=== PATIENT | female | born 1930 | race Caucasian/White ===

== ENCOUNTER → 2017-04-07 10:07 | Outpatient (CLI) | payer MEDICARE, BC ==
[2015-11-03 10:19] VITALS: BMI 27.8
[~2017-04-07 10:07] MED LIST: ACETAMINOPHEN325 MG PO; ATROVENT 0.02%2.5 ML UPD; AYR SALINE50 ML NS; BAYER CHEWABLE81 MG PO; BENZONATATE200 MG PO; BUPROBAN150 MG PO; CELEBREX200 MG PO; CORDARONE200 MG PO; FAMVIR500 MG PO; FERREX 150 PLUS1 CAP PO; FEXOFENADINE HC60 MG PO; KLOR-CON 1010 MEQ PO; LASIX40 MG PO; LEXAPRO20 MG PO; LIDOCAINE HC10 MG/M3 INH; METOPROLOL TART50 MG PO; MUCINEX DM ER1 EAC1 PO; MYRBETRIQ50 MG PO; ONCOLOGY MOUTHWA5 ML PO; PACERONE100 MG PO; PRADAXA150 MG PO; PREDNISONE20 MG PO; RESTASIS EYE DR30 EA EACH EYE; ROCEPHIN 1 GM/D51 G1 IV; SOLU-MEDRO40 MG/1 M1 IV; TUSSIONEX PENN473 ML PO; VITAMIN D2000 UNIT PO; XOPENEX 0.0.63 MG/3 UPD; ZITHROMAX250 MG PO; ZYRTEC10 MG PO; [UNRECOGNIZED DRUG - OTHER]
== END | disposition home or self-care (01) ==
LOC: D.US 10:07
DX: I65.23 Occlusion and stenosis of bilateral carotid arteries (principal)

== ENCOUNTER → 2017-07-08 08:43 | Outpatient (CLI) | payer MEDICARE, BC ==
[2015-11-03 10:19] VITALS: BMI 27.8
[~2017-07-08 08:43] MED LIST changes: +COZAAR25 MG PO; +LIPITOR20 MG PO; +PROTONIX40 MG PO; +STERAPRED DS 1210 MG PO
== END | disposition home or self-care (01) ==
LOC: D.CT 08:43
DX: R91.8 Other nonspecific abnormal finding of lung field (principal)

== ENCOUNTER → 2017-07-28 18:52 | Outpatient (CLI) | payer MEDICARE, BC ==
[2015-11-03 10:19] VITALS: BMI 27.8
== END | disposition home or self-care (01) ==
LOC: D.LABREF 18:52
DX: J11.1 Influenza due to unidentified influenza virus with other respiratory manifestations (principal)

== ENCOUNTER → 2017-08-21 14:52 | Outpatient (CLI) | payer MEDICARE, BC ==
[2015-11-03 10:19] VITALS: BMI 27.8
[2017-08-23 17:08] LABS: ACID FAST SMEAR Negative (()); AFB SPECIMEN PROCESSING Concentration (())
== END | disposition home or self-care (01) ==
LOC: D.LABREF 14:52
PROVIDERS: Student in an Organized Health Care Education/Training Program
DX: A31.0 Pulmonary mycobacterial infection (principal)

== ENCOUNTER → 2017-08-25 16:08 | Outpatient (CLI) | payer MEDICARE, BC ==
[2015-11-03 10:19] VITALS: BMI 27.8
[2017-08-27 16:14] LABS: ACID FAST SMEAR Negative (()); AFB SPECIMEN PROCESSING Concentration (())
== END | disposition home or self-care (01) ==
LOC: D.LABREF 16:08
PROVIDERS: Student in an Organized Health Care Education/Training Program
DX: A31.0 Pulmonary mycobacterial infection (principal)

== ENCOUNTER 2017-09-19 10:12 | Inpatient (IN) | payer MEDICARE, BC ==
[~2017-09-19] VITALS: Ht 162.6 cm; Wt 60.9 kg
--- NOTE | ~2017-09-19 | HP ---
PATIENT: LAZARO MCKENZIE MEDICAL RECORD: [id number] ACCOUNT: [id number] LOCATION:D.MS Herrera2205 : 30 ADMISSION DATE: 09/19/17 HISTORY AND PHYSICAL EXAMINATION HISTORY OF PRESENT ILLNESS: She is an 87-year-old female with a history of atypical pneumonia and COPD followed by myself and Dr. Clayton as an outpatient. She has had a cough that has been ongoing now for several months; however, in the last few days, she has been progressively getting a little more short of breath. She has also developed a fever last night. She just finished coming off an outpatient round of cefdinir about a week ago. On examination in the office today, she was found to have a left lower lobe infiltrate on exam with some leukocytosis and low-grade temperature and she was admitted for further evaluation and treatment. PAST MEDICAL HISTORY: Significant for congestive heart failure, coronary artery disease with stents and bypass surgery in the past. She has a history of chronic atrial fibrillation, hypertension, neuropathy, osteoarthritis, vitamin D deficiency. ALLERGIES: To ZHENG INHIBITORS, which caused a cough; CRESTOR, which caused myalgia; and SULFA. HOME MEDICATIONS: Include amiodarone 200 mg b.i.d., aspirin 81 mg daily, Lipitor 40 mg daily, bupropion SR 150 mg q.a.m., Celebrex p.r.n., Lexapro 20 mg daily, Lasix 40 mg daily, hydrocodone p.r.n., DuoNeb updrafts q.i.d., potassium 10 mEq daily, losartan 25 mg daily, pantoprazole 40 mg daily, Pradaxa 150 mg twice daily, Restasis eyedrops, vitamin D capsules. FAMILY HISTORY: Significant for diabetes and coronary artery disease. SOCIAL HISTORY: She is a former smoker, but quit over 10 years ago. No alcohol or drug use. REVIEW OF SYSTEMS: CONSTITUTIONALLY: She does complain of some fatigue. HEENT: Denies any sore throat or dysphagia, no ear pain. CARDIOPULMONARY: She denies chest pain, but does complain of cough with some productive greenish yellow sputum. She has been more short of breath. GASTROINTESTINAL: She has had some minimal nausea at times. Denies any abdominal pain. No diarrhea. GENITOURINARY: Denies any hematuria or dysuria. MUSCULOSKELETAL: She does have some chronic low back and hip pain. NEUROLOGIC: She denies any headache, numbness or tingling, facial droop. PHYSICAL EXAMINATION: VITAL SIGNS: Her blood pressure 138/70, pulse 91, respirations 16, temperature 98.6. HEENT: PERRLA, EOMI. Pharynx was clear. NECK: Supple, no JVD. HEART: Had an irregularly irregular rate and rhythm. LUNGS: Had some rhonchi with some diffuse wheezing anteriorly. ABDOMEN: Soft, nontender, nondistended. EXTREMITIES: Had no clubbing or edema. NEUROLOGICAL: Grossly intact. HISTORY AND PHYSICAL [id number] LAZARO MCKENZIE LABORATORY DATA: White count was 12.7 with a left shift. X-ray showed left a lower lobe infiltrate with some chronic scarring in the right upper lobe. ASSESSMENT AND PLAN: Pneumonia. Flu swabs here in the office for A and B were both negative. We are going to start her on Merrem and vancomycin with infectious disease and pulmonary consultations. Continue with home medications. We will get a CT of the chest for further delineation. TRANSINT:[id number] Voice Confirmation ID: [id number] DOCUMENT ID: [id number] JHONATAN CELAYA DO at 1011 CC: [id number] DICTATION DATE: 09/19/17 1044 FACILITIES MAINTENANCE MANAGER: 09/19/17 1100 ADM IN [place] [id number] [place] [address]
[~2017-09-19 10:12] MED LIST changes: -COZAAR25 MG PO; -LIPITOR20 MG PO; -PROTONIX40 MG PO; -STERAPRED DS 1210 MG PO
[2017-09-19 11:36] LABS: BASOPHILS 0.1 % (0-2); EOSINOPHILS 0.3 % (0-7); HEMATOCRIT 41.7 % (36.0-48.0); HEMOGLOBIN 13.6 g/dL (12-16); IMMATURE GRANULOCYTES 0.2 % (0-5); LYMPHOCYTES 5.7 % (15-50); MCH 33.3 pg (26.0-34.0); MCHC 32.6 g/dL (31.0-37.0); MEAN PLATELET VOLUME 10.1 fL (7.4-10.4); MONOCYTES 7.8 % (2-11); NEUTROPHILS 85.9 % (40-80); RBC 4.09 10x6/uL (4.00-5.40); RDW 14.6 % (11.5-14.5); WBC 12.4 10x3/uL (4.8-10.8)
[2017-09-19 11:37] LABS: PLATELET COUNT 352 10x3/uL (130-400)
[2017-09-19 11:50] LABS: ALBUMIN 2.8 g/dL (3.4-5.0); ALKALINE PHOSPHATASE 78 U/L (46-116); ALT (SGPT) 17 U/L (10-68); BILIRUBIN - TOTAL 0.65 mg/dL (0.2-1.3); CALC OSMOLALITY 280 mosm/kg (275-300); CALCIUM 8.4 mg/dL (8.5-10.1); CARBON DIOXIDE 28.4 mmol/L (21.0-32.0); CHLORIDE - SERUM 104 mmol/L (98-107); CREATININE - SERUM 0.7 mg/dL (0.6-1.3); GLUCOSE 85 mg/dL (74-106); PROTEIN - SERUM 6.9 g/dL (6.4-8.2); SODIUM 141 mmol/L (136-145); UREA NITROGEN 14 mg/dL (7-18); eGFR NON AFRICAN AMERICAN 84 mL/min (90-120)
[2017-09-19 12:02] VITALS: BP 120/69
[2017-09-19 18:51] VITALS: BP 120/69; Ht 162.6 cm; Wt 60.9 kg
[2017-09-19 20:00] VITALS: BP 180/85
[2017-09-20] VITALS (7 sets, daily range): BP systolic 106–141; BP diastolic 49–72
[2017-09-20 03:55] LABS: BASOPHILS 0.1 % (0-2); EOSINOPHILS 0 % (0-7); HEMATOCRIT 40.3 % (36.0-48.0); IMMATURE GRANULOCYTES 0.2 % (0-5); LYMPHOCYTES 3.5 % (15-50); MCH 32.9 pg (26.0-34.0); MCHC 32.3 g/dL (31.0-37.0); MEAN PLATELET VOLUME 9.9 fL (7.4-10.4); NEUTROPHILS 93.2 % (40-80); PLATELET COUNT 327 10x3/uL (130-400); RBC 3.95 10x6/uL (4.00-5.40); RDW 14.5 % (11.5-14.5)
[2017-09-20 04:11] LABS: ALBUMIN 2.6 g/dL (3.4-5.0); ALKALINE PHOSPHATASE 73 U/L (46-116); ALT (SGPT) 18 U/L (10-68); BILIRUBIN - TOTAL 0.45 mg/dL (0.2-1.3); CALC OSMOLALITY 286 mosm/kg (275-300); CALCIUM 8.6 mg/dL (8.5-10.1); CARBON DIOXIDE 28.7 mmol/L (21.0-32.0); CHLORIDE - SERUM 106 mmol/L (98-107); CREATININE - SERUM 0.6 mg/dL (0.6-1.3); MAGNESIUM - SERUM 2.3 mg/dL (1.8-2.4); PHOSPHOROUS 3.4 mg/dL (2.5-4.9); POTASSIUM - SERUM 4.1 mmol/L (3.5-5.1); PROTEIN - SERUM 6.7 g/dL (6.4-8.2); SODIUM 141 mmol/L (136-145); UREA NITROGEN 17 mg/dL (7-18); eGFR NON AFRICAN AMERICAN > 90 mL/min (90-120)
[2017-09-20 04:16] LABS: GLUCOSE 164 mg/dL (74-106)
[2017-09-21 04:00] VITALS: BP 120/69
[2017-09-21 09:14] VITALS: BP 147/85
[2017-09-21 13:42] LABS: BASOPHILS 0 % (0-2); EOSINOPHILS 0 % (0-7); HEMOGLOBIN 13.2 g/dL (12-16); IMMATURE GRANULOCYTES 0.3 % (0-5); LYMPHOCYTES 2.7 % (15-50); MCH 32.8 pg (26.0-34.0); MCHC 32.2 g/dL (31.0-37.0); MCV 101.7 fL (80.0-100.0); MEAN PLATELET VOLUME 9.8 fL (7.4-10.4); RBC 4.03 10x6/uL (4.00-5.40); RDW 14.6 % (11.5-14.5)
[2017-09-21 13:49] LABS: PLATELET COUNT 393 10x3/uL (130-400); WBC 13.4 10x3/uL (4.8-10.8)
[2017-09-21 13:54] VITALS: BP 135/66
[2017-09-21 14:03] LABS: ALBUMIN 2.9 g/dL (3.4-5.0); ALKALINE PHOSPHATASE 73 U/L (46-116); ALT (SGPT) 30 U/L (10-68); BILIRUBIN - TOTAL 0.36 mg/dL (0.2-1.3); CALC OSMOLALITY 287 mosm/kg (275-300); CALCIUM 8.7 mg/dL (8.5-10.1); CARBON DIOXIDE 28.6 mmol/L (21.0-32.0); CHLORIDE - SERUM 104 mmol/L (98-107); CREATININE - SERUM 0.7 mg/dL (0.6-1.3); GLUCOSE 131 mg/dL (74-106); POTASSIUM - SERUM 3.7 mmol/L (3.5-5.1); PROTEIN - SERUM 6.5 g/dL (6.4-8.2); SODIUM 143 mmol/L (136-145); UREA NITROGEN 16 mg/dL (7-18); eGFR NON AFRICAN AMERICAN 84 mL/min (90-120)
[2017-09-21 14:09] LABS: IMMUNOGLOBULIN A 265 mg/dL (64-422); IMMUNOGLOBULIN G 965 mg/dL (700-1600)
[2017-09-21 16:25] VITALS: BP 124/56
[2017-09-21 20:00] VITALS: BP 128/62
[2017-09-22 03:48] LABS: BASOPHILS 0 % (0-2); EOSINOPHILS 0 % (0-7); HEMATOCRIT 38.2 % (36.0-48.0); HEMOGLOBIN 12.5 g/dL (12-16); IMMATURE GRANULOCYTES 0.2 % (0-5); LYMPHOCYTES 3.7 % (15-50); MCH 33.2 pg (26.0-34.0); MCHC 32.7 g/dL (31.0-37.0); MCV 101.3 fL (80.0-100.0); MEAN PLATELET VOLUME 9.6 fL (7.4-10.4); MONOCYTES 4.6 % (2-11); NEUTROPHILS 91.5 % (40-80); PLATELET COUNT 371 10x3/uL (130-400); RBC 3.77 10x6/uL (4.00-5.40); RDW 14.6 % (11.5-14.5); WBC 14.6 10x3/uL (4.8-10.8)
[2017-09-22 04:00] VITALS: BP 147/69
[2017-09-22 04:07] LABS: ALBUMIN 2.6 g/dL (3.4-5.0); ALKALINE PHOSPHATASE 68 U/L (46-116); ALT (SGPT) 31 U/L (10-68); CALC OSMOLALITY 290 mosm/kg (275-300); CALCIUM 8.4 mg/dL (8.5-10.1); CARBON DIOXIDE 30.4 mmol/L (21.0-32.0); CHLORIDE - SERUM 105 mmol/L (98-107); CREATININE - SERUM 0.7 mg/dL (0.6-1.3); GLUCOSE 146 mg/dL (74-106); POTASSIUM - SERUM 3.7 mmol/L (3.5-5.1); PROTEIN - SERUM 6.4 g/dL (6.4-8.2); SODIUM 144 mmol/L (136-145); UREA NITROGEN 16 mg/dL (7-18); eGFR NON AFRICAN AMERICAN 84 mL/min (90-120)
[2017-09-22 08:00] VITALS: BP 156/67
[2017-09-22 11:56] VITALS: BP 125/65
[2017-09-22 15:40] VITALS: BP 106/63
[2017-09-23] VITALS: BP 154/70
[2017-09-23 04:00] VITALS: BP 149/77
[2017-09-23 05:00] LABS: BASOPHILS 0.1 % (0-2); EOSINOPHILS 0.2 % (0-7); HEMATOCRIT 42.1 % (36.0-48.0); HEMOGLOBIN 13.5 g/dL (12-16); IMMATURE GRANULOCYTES 0.3 % (0-5); LYMPHOCYTES 9.3 % (15-50); MCH 32.8 pg (26.0-34.0); MCHC 32.1 g/dL (31.0-37.0); MCV 102.2 fL (80.0-100.0); MONOCYTES 9.5 % (2-11); NEUTROPHILS 80.6 % (40-80); PLATELET COUNT 393 10x3/uL (130-400); RBC 4.12 10x6/uL (4.00-5.40); RDW 14.7 % (11.5-14.5); WBC 14.5 10x3/uL (4.8-10.8)
[2017-09-23 05:28] LABS: ALBUMIN 2.7 g/dL (3.4-5.0); ALKALINE PHOSPHATASE 72 U/L (46-116); CALCIUM 8.3 mg/dL (8.5-10.1); CARBON DIOXIDE 34.4 mmol/L (21.0-32.0); CHLORIDE - SERUM 103 mmol/L (98-107); CREATININE - SERUM 0.7 mg/dL (0.6-1.3); POTASSIUM - SERUM 3.5 mmol/L (3.5-5.1); PROTEIN - SERUM 6.6 g/dL (6.4-8.2); SODIUM 144 mmol/L (136-145); eGFR NON AFRICAN AMERICAN 84 mL/min (90-120)
[2017-09-23 05:43] LABS: ALT (SGPT) 45 U/L (10-68); CALC OSMOLALITY 289 mosm/kg (275-300); GLUCOSE 98 mg/dL (74-106); UREA NITROGEN 21 mg/dL (7-18)
[2017-09-23 09:42] VITALS: BP 149/81
[2017-09-23 13:19] VITALS: BP 128/66
[2017-09-23 17:02] VITALS: BP 107/51
[2017-09-24] VITALS: BP 164/87
[2017-09-24 04:00] VITALS: BP 134/77
[2017-09-24 04:36] LABS: BASOPHILS 0.1 % (0-2); EOSINOPHILS 0.3 % (0-7); HEMATOCRIT 40.3 % (36.0-48.0); IMMATURE GRANULOCYTES 0.4 % (0-5); LYMPHOCYTES 8.5 % (15-50); MCH 32.8 pg (26.0-34.0); MCHC 32.3 g/dL (31.0-37.0); MCV 101.8 fL (80.0-100.0); NEUTROPHILS 82.7 % (40-80); PLATELET COUNT 367 10x3/uL (130-400); RBC 3.96 10x6/uL (4.00-5.40); RDW 14.6 % (11.5-14.5); WBC 13.6 10x3/uL (4.8-10.8)
[2017-09-24 04:50] LABS: CALC OSMOLALITY 286 mosm/kg (275-300); CALCIUM 8.4 mg/dL (8.5-10.1); CARBON DIOXIDE 32.2 mmol/L (21.0-32.0); CHLORIDE - SERUM 105 mmol/L (98-107); CREATININE - SERUM 0.6 mg/dL (0.6-1.3); GLUCOSE 105 mg/dL (74-106); POTASSIUM - SERUM 3.5 mmol/L (3.5-5.1); SODIUM 143 mmol/L (136-145); UREA NITROGEN 19 mg/dL (7-18); eGFR NON AFRICAN AMERICAN > 90 mL/min (90-120)
[2017-09-24 08:38] VITALS: BP 115/61
[2017-09-24 12:28] VITALS: BP 108/59
[2017-09-24 16:20] VITALS: BP 116/60
[2017-09-25] VITALS: BP 160/79
[2017-09-25 04:37] LABS: BASOPHILS 0.1 % (0-2); EOSINOPHILS 0.3 % (0-7); HEMATOCRIT 40.2 % (36.0-48.0); HEMOGLOBIN 12.8 g/dL (12-16); IMMATURE GRANULOCYTES 0.3 % (0-5); LYMPHOCYTES 7.9 % (15-50); MCH 32.7 pg (26.0-34.0); MCHC 31.8 g/dL (31.0-37.0); MCV 102.6 fL (80.0-100.0); MEAN PLATELET VOLUME 9.8 fL (7.4-10.4); MONOCYTES 7.1 % (2-11); NEUTROPHILS 84.3 % (40-80); PLATELET COUNT 390 10x3/uL (130-400); RBC 3.92 10x6/uL (4.00-5.40); RDW 14.8 % (11.5-14.5); WBC 12.5 10x3/uL (4.8-10.8)
[2017-09-25 04:53] LABS: CALC OSMOLALITY 285 mosm/kg (275-300); CALCIUM 8.5 mg/dL (8.5-10.1); CHLORIDE - SERUM 105 mmol/L (98-107); CREATININE - SERUM 0.7 mg/dL (0.6-1.3); GLUCOSE 105 mg/dL (74-106); SODIUM 142 mmol/L (136-145); UREA NITROGEN 22 mg/dL (7-18); eGFR NON AFRICAN AMERICAN 84 mL/min (90-120)
[2017-09-25 04:59] LABS: POTASSIUM - SERUM 4.2 mmol/L (3.5-5.1)
[2017-09-25 06:00] VITALS: BP 137/73
[2017-09-25] MEDS ORDERED: CORDARONE200 MG PO (06:50)
[2017-09-25] MEDS ORDERED: COZAAR25 MG PO (06:50)
[2017-09-25] MEDS ORDERED: LIPITOR20 MG PO (06:50)
[2017-09-25] MEDS ORDERED: PROTONIX40 MG PO (06:51)
[2017-09-25] MEDS ORDERED: PRADAXA150 MG PO (06:51)
[2017-09-25] MEDS ORDERED: STERAPRED DS 1210 MG PO (06:52)
[2017-09-25 08:42] VITALS: BP 141/70
[2017-09-25 11:49] VITALS: BP 100/57
[2017-09-25 21:08] LABS: IMMUNOGLOBULIN E 3 IU/mL (0-100)
== END 2017-09-25 15:03 | disposition home health service (06) | DRG 178 ==
LOC: D.MS 10:12
PROVIDERS: Family Medicine; Internal Medicine Pulmonary Disease
DX: J15.1 Pneumonia due to Pseudomonas (principal); J44.0 Chronic obstructive pulmonary disease with (acute) lower respiratory infection; J44.1 Chronic obstructive pulmonary disease with (acute) exacerbation; S22.42XA Multiple fractures of ribs, left side, initial encounter for closed fracture; J90 Pleural effusion, not elsewhere classified; J98.11 Atelectasis; J30.9 Allergic rhinitis, unspecified; X58.XXXA Exposure to other specified factors, initial encounter; I10 Essential (primary) hypertension; I48.2 Chronic atrial fibrillation; Z79.01 Long term (current) use of anticoagulants; G62.9 Polyneuropathy, unspecified; Z95.1 Presence of aortocoronary bypass graft; M19.90 Unspecified osteoarthritis, unspecified site; E55.9 Vitamin D deficiency, unspecified; I25.10 Atherosclerotic heart disease of native coronary artery without angina pectoris; R91.8 Other nonspecific abnormal finding of lung field; K59.00 Constipation, unspecified; D64.9 Anemia, unspecified; R53.1 Weakness

== ENCOUNTER → 2018-04-27 09:37 | Outpatient (CLI) | payer MEDICARE, BC ==
[2017-09-19 18:51] VITALS: BMI 23.0
[~2018-04-27 09:37] MED LIST changes: +COZAAR25 MG PO; +LIPITOR20 MG PO; +PROTONIX40 MG PO; +STERAPRED DS 1210 MG PO
== END | disposition home or self-care (01) ==
LOC: D.RT 09:37
DX: Z87.01 Personal history of pneumonia (recurrent) (principal); J45.909 Unspecified asthma, uncomplicated

== ENCOUNTER 2018-08-30 13:50 | Emergency (ER) | payer MEDICARE, BC ==
[~2018-08-30] VITALS: Ht 162.6 cm; Wt 63.6 kg
[2018-08-30 14:08] VITALS: Ht 162.6 cm; Wt 63.6 kg
[2018-08-30] MEDS ORDERED: CARDIZEM CD180 MG PO (14:13)
[2018-08-30] MEDS ORDERED: LANOXIN125 MCG PO (14:14)
[2018-08-30] MEDS ORDERED: SINGULAIR10 MG PO (14:15)
[2018-08-30 14:53] LABS: BASOPHILS 0.5 % (0-2); EOSINOPHILS 2.4 % (0-7); HEMATOCRIT 42.7 % (36.0-48.0); IMMATURE GRANULOCYTES 0.2 % (0-5); LYMPHOCYTES 11.2 % (15-50); MCH 32.9 pg (26.0-34.0); MCHC 32.8 g/dL (31.0-37.0); MCV 100.5 fL (80.0-100.0); MEAN PLATELET VOLUME 9.6 fL (7.4-10.4); MONOCYTES 8.1 % (2-11); NEUTROPHILS 77.6 % (40-80); RBC 4.25 10x6/uL (4.00-5.40); RDW 14.2 % (11.5-14.5); WBC 9.9 10x3/uL (4.8-10.8)
[2018-08-30 14:54] LABS: PLATELET COUNT 236 10x3/uL (130-400)
[2018-08-30 15:09] LABS: ALBUMIN 3.2 g/dL (3.4-5.0); ANION GAP 10.4 mmol/L (8-16); BILIRUBIN - TOTAL 0.46 mg/dL (0.2-1.3); CALCIUM 8.6 mg/dL (8.5-10.1); CARBON DIOXIDE 28.9 mmol/L (21.0-32.0); CREATININE - SERUM 0.9 mg/dL (0.6-1.3); POTASSIUM - SERUM 4.3 mmol/L (3.5-5.1)
[2018-08-30] MEDS ORDERED: MUCINEX600 MG PO (16:03)
[2018-08-30] MEDS ORDERED: OMNICEF300 MG PO (16:03)
[2018-08-30 16:30] VITALS: BP 138/66
== END 2018-08-30 16:30 | disposition other institution (70) ==
LOC: D.ER 13:50
PROVIDERS: Emergency Medicine
DX: J44.9 Chronic obstructive pulmonary disease, unspecified (principal); R06.02 Shortness of breath

== ENCOUNTER → 2018-09-01 09:24 | Outpatient (CLI) | payer MEDICARE, BC ==
[2018-08-30 14:08] VITALS: BMI 24.0
[~2018-09-01 09:24] MED LIST changes: +CARDIZEM CD180 MG PO; +LANOXIN125 MCG PO; +MUCINEX600 MG PO; +OMNICEF300 MG PO; +SINGULAIR10 MG PO
== END | disposition home or self-care (01) ==
LOC: D.US 09:24
DX: I65.23 Occlusion and stenosis of bilateral carotid arteries (principal)

== ENCOUNTER → 2019-05-17 10:41 | Outpatient (CLI) | payer MEDICARE, BC ==
[2018-08-30 14:08] VITALS: BMI 24.0
== END | disposition home or self-care (01) ==
LOC: D.RAD 10:41
PROVIDERS: ATTEND Internal Medicine Pulmonary Disease
DX: J44.9 Chronic obstructive pulmonary disease, unspecified (principal); Z87.01 Personal history of pneumonia (recurrent)

== ENCOUNTER 2019-08-13 10:03 | Inpatient (IN) | payer MEDICARE, BC ==
[~2019-08-13] VITALS: Ht 162.6 cm; Wt 63.2 kg
[2019-08-13 10:51] LABS: BASOPHILS 0.1 % (0-2); EOSINOPHILS 0.1 % (0-7); HEMATOCRIT 42.2 % (36.0-48.0); HEMOGLOBIN 14.3 g/dL (12-16); IMMATURE GRANULOCYTES 0.3 % (0-5); LYMPHOCYTES 1.9 % (15-50); MCH 31.7 pg (26.0-34.0); MCHC 33.9 g/dL (31.0-37.0); MCV 93.6 fL (80.0-100.0); MEAN PLATELET VOLUME 9.3 fL (7.4-10.4); MONOCYTES 5.8 % (2-11); NEUTROPHILS 91.8 % (40-80); PLATELET COUNT 258 10x3/uL (130-400); RBC 4.51 10x6/uL (4.00-5.40); RDW 16.8 % (11.5-14.5)
[2019-08-13 10:59] LABS: CALC OSMOLALITY 285 mosm/kg (275-300); CARBON DIOXIDE 30.7 mmol/L (21.0-32.0); CHLORIDE - SERUM 103 mmol/L (98-107); CREATININE - SERUM 0.7 mg/dL (0.6-1.3); GLUCOSE 166 mg/dL (74-106); POTASSIUM - SERUM 3.9 mmol/L (3.5-5.1); SODIUM 140 mmol/L (136-145); UREA NITROGEN 21 mg/dL (7-18); eGFR NON AFRICAN AMERICAN 83 mL/min (90-120)
[2019-08-13 11:01] LABS: APTT 41.4 SECONDS (22.8-39.4); INR 1.37 (0.85-1.17); PROTIME 16.3 SECONDS (11.6-15.0)
[2019-08-13 11:17] LABS: ALBUMIN 3.1 g/dL (3.4-5.0); ALKALINE PHOSPHATASE 60 U/L (46-116); ALT (SGPT) 32 U/L (10-68); CKMB 3.4 U/L (0.0-3.6); CREATINE KINASE 80 UL (21-215); PRO BNP 1489 pg/mL (0-450); PROTEIN - SERUM 6.2 g/dL (6.4-8.2); TROPONIN-I 0.028 ng/mL (0.000-0.060)
[2019-08-13 12:39] VITALS: BP 134/69
--- NOTE | 2019-08-13 15:30 | NUR ---
NEW PATIENT ADMIT FROM ER VIA WC ACCOMPANIED BY ER STAFF. PATIENT IS WAKE, ALERT AND ORIENTED X 4. PATIENT TRANSFERRED TO BED WITHOUT DIFFICULTY. PATIENT IS COUGHING EXCESSIVELY. ABG'S WNL. O2SAT 89%. INCREASED 02 FROM 2 L TO 4L. PATIENT HISTORY AND ASSESMENT COMPLETED. RESP THERAPY IN ROOM FOR BREATHING TREATMENT. WILL CONTINUE TO MONITOR. SR UP X 2 BED IN LOW POSITION AND CALL LIGHT IN REACH.
[2019-08-13 16:17] VITALS: BP 125/80
[2019-08-13 16:21] VITALS: BP 125/67; BMI 22.8
--- NOTE | 2019-08-13 18:00 | NUR ---
PATIENT STATES THAT SHE USES BIPAPN AT NIGHT. PATIENT DID NOT BRING MACHINE WITH HER AND SHE DOES NOT KNOW SETTINGS. CALLED DR MAYEN . HE DID NOT WANT ORDER BIPAP WITHOUT KNOWING SETTINGS. HE WOULD BE FINE IF SOMEONE JUDSON BRING HER MACHINE HERE WITH SETTINGS IN PLACE. SPOKE WITH PATIENTS PUJA OCAMPO SHE WILL BRING MACHINE UP HERE. WILL CONTINUE TO MONITOR. SR UPX 2 BED IN LOW POSITION AND CALL LIGHT INR EACH.
--- NOTE | 2019-08-13 18:19 | NUR ---
PATIENT RESTING QUIETLY. WILL CONTINUE TO MONITOR. SR UP X 2 BED IN LOW POSITION AND CALL LIGHT IN REACH.
[2019-08-13 20:00] VITALS: BP 127/69
--- NOTE | 2019-08-13 20:30 | NUR ---
PT STATES SHE TAKES CARDIZEM 180MG BID BUT IT IS LISTED IN HER HOME MEDS 180MG DAILY. CALLED DORENE HERNANDEZ TO INFORM. NO NEW ORDERS GIVEN. THE ROUNDING MD OR DORENE TO ADDRESS IN THE AM. WILL REPORT THIS TO ONCOMING NURSE WELL IN REPORT. PT DENIES PAIN OR FURTHER NEEDS. HER BED IS LOW AND CALL LIGHT IN REACH.
[2019-08-13 23:58] LABS: APPEARANCE CLEAR (CLEAR); BILIRUBIN NEGATIVE (NEGATIVE); COLOR YELLOW (YELLOW); GLUCOSE 500 mg/dL (NEGATIVE); KETONE SMALL mg/dL (NEGATIVE); NITRITE NEGATIVE (NEGATIVE); PROTEIN NEGATIVE (NEGATIVE); UROBILINOGEN NORMAL (NORMAL)
[2019-08-14] VITALS: BP 110/85
[2019-08-14 04:00] VITALS: BP 149/89
--- NOTE | 2019-08-14 07:00 | NUR ---
RECEIVED REPORT. ASSUMED CARE OF PATIENT. COFFEE PROVIDED TO PATIENT DURING BEDSIDE SHIFT REPORT. NONPRODUCTIVE WET COUGH NOTED. CALL LIGHT WITHIN REACH. NO DISTRESS.
[2019-08-14 08:26] VITALS: BP 127/73
--- NOTE | 2019-08-14 10:00 | NUR ---
PATIENT RESTING IN BED WITH EYES OPEN. DR. MAYEN AT BEDSIDE. CALL LIGHT WITHINR EACH. NO DISTRESS.
[2019-08-14 10:36] LABS: HEMATOCRIT 42.4 % (36.0-48.0); MCH 31.1 pg (26.0-34.0); MCV 94.2 fL (80.0-100.0); MEAN PLATELET VOLUME 9.4 fL (7.4-10.4); PLATELET COUNT 300 10x3/uL (130-400); RDW 17.2 % (11.5-14.5); WBC 19.1 10x3/uL (4.8-10.8)
[2019-08-14 10:46] LABS: CALC OSMOLALITY 286 mosm/kg (275-300); CARBON DIOXIDE 29.7 mmol/L (21.0-32.0); CHLORIDE - SERUM 102 mmol/L (98-107); CREATININE - SERUM 0.7 mg/dL (0.6-1.3); GLUCOSE 181 mg/dL (74-106); POTASSIUM - SERUM 4.1 mmol/L (3.5-5.1); SODIUM 141 mmol/L (136-145); eGFR NON AFRICAN AMERICAN 83 mL/min (90-120)
[2019-08-14 10:47] LABS: UREA NITROGEN 15 mg/dL (7-18)
[2019-08-14 11:04] LABS: LYMPHOCYTES 5 % (15-50); MONOCYTES 10 % (2-11); NEUTROPHILS 83 % (40-80); PLATELET ESTIMATE NORMAL
[2019-08-14 12:03] VITALS: BP 158/89
--- NOTE | 2019-08-14 13:00 | NUR ---
NEW ORDER FOR ROBITUSIN COUGH SYRUP OBTAINED. NO DISTRESS.
[2019-08-14 14:30] VITALS: Ht 162.6 cm; Wt 63.2 kg
--- NOTE | 2019-08-14 17:23 | NUR ---
RESTING IN BED, NO DISTRESS. CALL LIGHT WITHIN REACH.
--- NOTE | 2019-08-14 19:28 | NUR ---
RECEIVED UP IN BED WITH EYES OPEN AND TV ON. ALERT AND ORIETNED X4. UP AD ROMMEL TO B/R. IV TO LEFR TFA INFILTRATED. IV FLUIDS STOPPED. WARM WASH CLOTH PLACED ON AREA. DENIES ANY NEEDS AT THIS TIME.
[2019-08-14 20:00] VITALS: BP 109/64
[2019-08-15] VITALS: BP 128/68
[2019-08-15 04:00] VITALS: BP 140/78
[2019-08-15 05:03] LABS: BASOPHILS 0.1 % (0-2); EOSINOPHILS 0 % (0-7); HEMATOCRIT 40.1 % (36.0-48.0); IMMATURE GRANULOCYTES 0.4 % (0-5); LYMPHOCYTES 2.2 % (15-50); MCH 30.7 pg (26.0-34.0); MCHC 32.4 g/dL (31.0-37.0); MCV 94.8 fL (80.0-100.0); MEAN PLATELET VOLUME 9.4 fL (7.4-10.4); MONOCYTES 2.9 % (2-11); NEUTROPHILS 94.4 % (40-80); PLATELET COUNT 244 10x3/uL (130-400); RBC 4.23 10x6/uL (4.00-5.40); RDW 17.2 % (11.5-14.5); WBC 19.2 10x3/uL (4.8-10.8)
[2019-08-15 05:22] LABS: CALC OSMOLALITY 288 mosm/kg (275-300); CALCIUM 8.6 mg/dL (8.5-10.1); CARBON DIOXIDE 29.2 mmol/L (21.0-32.0); CHLORIDE - SERUM 106 mmol/L (98-107); CREATININE - SERUM 0.6 mg/dL (0.6-1.3); GLUCOSE 202 mg/dL (74-106); POTASSIUM - SERUM 4.1 mmol/L (3.5-5.1); SODIUM 141 mmol/L (136-145); UREA NITROGEN 18 mg/dL (7-18); eGFR NON AFRICAN AMERICAN > 90 mL/min (90-120)
[2019-08-15 08:19] VITALS: BP 109/78
[2019-08-15 11:48] VITALS: BP 120/76
--- NOTE | 2019-08-15 14:37 | NUR ---
I have reviewed this patient and I concur with the Shift Assessment completed by the Licensed Practical Nurse today this shift.
[2019-08-15 16:44] VITALS: BP 124/67
--- NOTE | 2019-08-15 18:47 | NUR ---
RECIEVED A/A/OX4. DENIES ANY PAIN OR DISCOMFORT. STATES SHE IS ANGRY THAT RT DID NOT PUT HER CPAP ON HER LAST NIGHT BUT NO OTHER COMPLAINTS. IV PATENT TO RIGHT FOREARM WITHOUT REDNESS OR EDEMA. ASSESSMENT COMPLETED AND WILL CONTINIE POC. CALL LIGHT IN REACH AND BED IN LOW POSITION.
[2019-08-15 20:00] VITALS: BP 109/63
--- NOTE | 2019-08-15 20:00 | NUR ---
RECEIVED UP IN BED WITH EYES OPEN AND TV ON. ALERT AND ORIETNED X4. UP AD ROMMEL. RECEIVING UPDRAFT AT TRHIS TIME. O2 AT 4 LITERS PER N/C. IV TO RIGHT FAA WITH NS AT 75CC/HR. DSG CDEI WITH NO REDNESS OR SWELLING OBSERVED. DENIES ANY NEEDS AT THIS TIME.
[2019-08-16] VITALS: BP 128/77
[2019-08-16 05:36] LABS: BASOPHILS 0 % (0-2); EOSINOPHILS 0 % (0-7); HEMATOCRIT 40.8 % (36.0-48.0); HEMOGLOBIN 13.1 g/dL (12-16); IMMATURE GRANULOCYTES 0.5 % (0-5); LYMPHOCYTES 2.4 % (15-50); MCH 30.9 pg (26.0-34.0); MCHC 32.1 g/dL (31.0-37.0); MCV 96.2 fL (80.0-100.0); MEAN PLATELET VOLUME 9.3 fL (7.4-10.4); MONOCYTES 3.4 % (2-11); NEUTROPHILS 93.7 % (40-80); RBC 4.24 10x6/uL (4.00-5.40); RDW 17.4 % (11.5-14.5)
[2019-08-16 05:54] LABS: PLATELET COUNT 320 10x3/uL (130-400); WBC 14.2 10x3/uL (4.8-10.8)
[2019-08-16 05:56] LABS: CALC OSMOLALITY 295 mosm/kg (275-300); CALCIUM 8.6 mg/dL (8.5-10.1); CARBON DIOXIDE 29.2 mmol/L (21.0-32.0); CHLORIDE - SERUM 106 mmol/L (98-107); CREATININE - SERUM 0.6 mg/dL (0.6-1.3); GLUCOSE 237 mg/dL (74-106); POTASSIUM - SERUM 4.1 mmol/L (3.5-5.1); SODIUM 143 mmol/L (136-145); UREA NITROGEN 21 mg/dL (7-18); eGFR NON AFRICAN AMERICAN > 90 mL/min (90-120)
[2019-08-16 08:41] VITALS: BP 151/76
[2019-08-16 13:18] VITALS: BP 129/60
--- NOTE | 2019-08-16 15:58 | NUR ---
PT WITH SWELLING TO RIGHT LE TODAY. STATES SHE TAKES LASIX PRN AT HOME. ON HOME MED LIST BUT HELD. WILL MONITOR.
[2019-08-16 18:10] VITALS: BP 131/68
--- NOTE | 2019-08-16 19:39 | NUR ---
EVENING ROUNDS COMPLETE, PT SITTING UP IN BED. NO SIGNS OF DISTRESS. PT DENIES ANY PAIN OR NEEDS AT THIS TIME. CL IN REACH, BED IN LOWEST POSITION.
[2019-08-16 20:00] VITALS: BP 130/74
[2019-08-17 04:00] VITALS: BP 139/79
[2019-08-17 05:39] LABS: BASOPHILS 0 % (0-2); EOSINOPHILS 0 % (0-7); HEMATOCRIT 41.5 % (36.0-48.0); HEMOGLOBIN 13.4 g/dL (12-16); IMMATURE GRANULOCYTES 0.4 % (0-5); MCH 30.9 pg (26.0-34.0); MCHC 32.3 g/dL (31.0-37.0); MCV 95.8 fL (80.0-100.0); MEAN PLATELET VOLUME 9.6 fL (7.4-10.4); MONOCYTES 4.1 % (2-11); NEUTROPHILS 93.5 % (40-80); PLATELET COUNT 314 10x3/uL (130-400); RBC 4.33 10x6/uL (4.00-5.40); RDW 17.4 % (11.5-14.5); WBC 15.8 10x3/uL (4.8-10.8)
[2019-08-17 06:39] LABS: CALC OSMOLALITY 288 mosm/kg (275-300); CALCIUM 8.8 mg/dL (8.5-10.1); CARBON DIOXIDE 28.9 mmol/L (21.0-32.0); CHLORIDE - SERUM 104 mmol/L (98-107); CREATININE - SERUM 0.6 mg/dL (0.6-1.3); GLUCOSE 224 mg/dL (74-106); SODIUM 140 mmol/L (136-145); UREA NITROGEN 22 mg/dL (7-18); eGFR NON AFRICAN AMERICAN > 90 mL/min (90-120)
[2019-08-17 06:43] LABS: POTASSIUM - SERUM 4.7 mmol/L (3.5-5.1)
[2019-08-17 07:36] VITALS: BP 143/86
[2019-08-17 11:34] VITALS: BP 133/70
--- NOTE | 2019-08-17 11:43 | NUR ---
Nutrition Follow-up: Pt sleeping on CPAP this AM. Breakfast appeared untouched. Diet: Cardiac, Ensure TID PO intake: 46% avg x 6 meals Wt: 143# (08/17); 133# (08/14) Last BM: 08/15 per chart Labs noted: Glu 224 Meds noted: Miralax, NS @ 75 -Rec appetite stimulant -May consider A1C -RD following
[2019-08-17 15:11] VITALS: BP 145/70
[2019-08-17 20:00] VITALS: BP 126/90
--- NOTE | 2019-08-17 21:48 | NUR ---
EVENING ROUNDS COMPLETED. VSS, AAOX3, NO S/S OF RT DISTRESS, EXCEPT FOR OCCASIONAL COUGH. ASKED PT IF SHE CAN SWALLOW HER MEDS. SHE STATES "YES" THAT SHE HAS BEEN SWALLOWING THEM "PRETTY GOOD." CPAP MACHINE AT BEDSIDE. O2 @ 3L. PT DENIES ANY FURTHER NEEDS AT THIS TIME. WILL CPOC. CL WITHIN REACH, BED IN LOW, SR UP X2.
[2019-08-18] VITALS: BP 138/73
[2019-08-18 04:00] VITALS: BP 147/75
[2019-08-18 06:20] LABS: BASOPHILS 0 % (0-2); EOSINOPHILS 0.2 % (0-7); HEMATOCRIT 44.2 % (36.0-48.0); HEMOGLOBIN 14.5 g/dL (12-16); IMMATURE GRANULOCYTES 0.9 % (0-5); LYMPHOCYTES 6.8 % (15-50); MCH 31.6 pg (26.0-34.0); MCHC 32.8 g/dL (31.0-37.0); MCV 96.3 fL (80.0-100.0); MEAN PLATELET VOLUME 9.7 fL (7.4-10.4); MONOCYTES 5.4 % (2-11); NEUTROPHILS 86.7 % (40-80); PLATELET COUNT 319 10x3/uL (130-400); RBC 4.59 10x6/uL (4.00-5.40); RDW 17.9 % (11.5-14.5); WBC 17.5 10x3/uL (4.8-10.8)
[2019-08-18 06:37] LABS: CALC OSMOLALITY 279 mosm/kg (275-300); CALCIUM 8.9 mg/dL (8.5-10.1); CARBON DIOXIDE 33.9 mmol/L (21.0-32.0); CHLORIDE - SERUM 100 mmol/L (98-107); CREATININE - SERUM 0.6 mg/dL (0.6-1.3); POTASSIUM - SERUM 4.3 mmol/L (3.5-5.1); SODIUM 139 mmol/L (136-145); UREA NITROGEN 18 mg/dL (7-18); eGFR NON AFRICAN AMERICAN > 90 mL/min (90-120)
[2019-08-18 06:43] LABS: GLUCOSE 100 mg/dL (74-106)
--- NOTE | 2019-08-18 07:00 | NUR ---
PT C/O OF COUGHING ALL NIGHT. NOTIFIED INCOMING SHIFT NURSE ABOUT PT'S CONCERN AND ALSO TO HELP NOTIFY PT'S ADMITTING PHYSICIAN.
[2019-08-18 08:00] VITALS: BP 134/83
[2019-08-18 11:36] VITALS: BP 119/61
[2019-08-18 16:04] VITALS: BP 124/64
--- NOTE | 2019-08-18 20:00 | NUR ---
EVENING ROUNDS COMPLETED. PT AAOX4, AFVSS, NO S/S OF RT DISTRESS, RR EVEN AND UNLABORED. FAMILY @BEDSIDE. PT STATES SHE HAD A GOOD REST TODAY AND HOPING TO REST TONIGHT. PT DENIES ANY NEED FOR PAIN. BM REGULAR. PT DENIES THE NEED FOR MIRALAX, WILL HOLD. PT DENIES ANY FURTHER NEEDS AT THIS TIME. WILL CPOC. CL WITHIN REACH, BED IN LOW, SR UP X2.
[2019-08-18 20:15] VITALS: BP 136/73
--- NOTE | 2019-08-18 23:32 | NUR ---
PIV IN RFA INFILTRATED. NO S/S OF BLEEDING. RESTARTED A NEW PIV 22G X1 STICK ON RFA. PT TOLERATE WELL. 1G MERREM INFUSING AT THIS TIME. WILL CPOC. CL WITHIN REACH.
[2019-08-19] VITALS (7 sets, daily range): BP systolic 118–151; BP diastolic 66–86
[2019-08-19 05:20] LABS: BASOPHILS 0.1 % (0-2); EOSINOPHILS 0.9 % (0-7); HEMATOCRIT 40.9 % (36.0-48.0); HEMOGLOBIN 13.4 g/dL (12-16); IMMATURE GRANULOCYTES 0.5 % (0-5); MCH 31.3 pg (26.0-34.0); MCHC 32.8 g/dL (31.0-37.0); MCV 95.6 fL (80.0-100.0); MEAN PLATELET VOLUME 9.7 fL (7.4-10.4); MONOCYTES 4.3 % (2-11); NEUTROPHILS 89.2 % (40-80); PLATELET COUNT 258 10x3/uL (130-400); RBC 4.28 10x6/uL (4.00-5.40); RDW 17.6 % (11.5-14.5); WBC 16.4 10x3/uL (4.8-10.8)
[2019-08-19 05:34] LABS: CALC OSMOLALITY 280 mosm/kg (275-300); CALCIUM 8.3 mg/dL (8.5-10.1); CARBON DIOXIDE 30.6 mmol/L (21.0-32.0); CHLORIDE - SERUM 103 mmol/L (98-107); CREATININE - SERUM 0.6 mg/dL (0.6-1.3); GLUCOSE 131 mg/dL (74-106); POTASSIUM - SERUM 4.3 mmol/L (3.5-5.1); SODIUM 139 mmol/L (136-145); UREA NITROGEN 16 mg/dL (7-18); eGFR NON AFRICAN AMERICAN > 90 mL/min (90-120)
--- NOTE | 2019-08-19 07:32 | NUR ---
08/19/2019----PULMOCORT WAS GIVEN WITH JESSICA ALONSO
--- NOTE | 2019-08-19 07:34 | NUR ---
PULMICORT WAS GIVEN WITH JESSICA ALONSO
--- NOTE | 2019-08-19 23:51 | NUR ---
RESTING IN BED WITH EYES CLOSED WEARING BI PAP DEVICE. ASIISTANCE WITH RESTROOM. PRN COUGH MEDICINE AND PRN ZOFERN GIVEN. ALERT AND ORINTED x4. CALL LIGHT WITH IN REACH AND BED IS IN LOWEST POSITION. PT ADVISED TO CALL FOR HELP WHEN NEDDING TO GET OUT OF BED. WILL CONTINUE TO MONITOR
[2019-08-20 04:00] VITALS: BP 130/66
--- NOTE | 2019-08-20 04:25 | NUR ---
I have reviewed this patient and I concur with the Shift Assessment completed by the Licensed Practical Nurse today this shift.
[2019-08-20 04:48] LABS: BASOPHILS 0 % (0-2); EOSINOPHILS 1.9 % (0-7); HEMATOCRIT 39.5 % (36.0-48.0); HEMOGLOBIN 12.7 g/dL (12-16); IMMATURE GRANULOCYTES 0.6 % (0-5); LYMPHOCYTES 5.9 % (15-50); MCH 30.7 pg (26.0-34.0); MCHC 32.2 g/dL (31.0-37.0); MCV 95.4 fL (80.0-100.0); MEAN PLATELET VOLUME 9.2 fL (7.4-10.4); MONOCYTES 4.8 % (2-11); NEUTROPHILS 86.8 % (40-80); PLATELET COUNT 242 10x3/uL (130-400); RBC 4.14 10x6/uL (4.00-5.40); RDW 17.3 % (11.5-14.5)
[2019-08-20 05:11] LABS: WBC 11.8 10x3/uL (4.8-10.8)
[2019-08-20 05:32] LABS: ALBUMIN 2.3 g/dL (3.4-5.0); ALKALINE PHOSPHATASE 49 U/L (46-116); ALT (SGPT) 33 U/L (10-68); BILIRUBIN - TOTAL 1.09 mg/dL (0.2-1.3); CALC OSMOLALITY 276 mosm/kg (275-300); CALCIUM 8.2 mg/dL (8.5-10.1); CARBON DIOXIDE 30.1 mmol/L (21.0-32.0); CHLORIDE - SERUM 102 mmol/L (98-107); CREATININE - SERUM 0.5 mg/dL (0.6-1.3); GLUCOSE 137 mg/dL (74-106); POTASSIUM - SERUM 4.2 mmol/L (3.5-5.1); PROTEIN - SERUM 5.6 g/dL (6.4-8.2); SODIUM 137 mmol/L (136-145); UREA NITROGEN 14 mg/dL (7-18); eGFR NON AFRICAN AMERICAN > 90 mL/min (90-120)
--- NOTE | 2019-08-20 06:08 | NUR ---
LYING IN BED RESTING WITH EYES CLOSED. BIPAP IS ON. ASISSTED PT TO RESTROOM X5 TIMES TO VOID. DURING THE NIGHT. PT BECOMES SHORT OF BREATH WHEN MOVING AROUD. NO COMPLAINTS OF PAIN AT THIS TIME. CALL LIGHT WITHIN REACH AND BED IN LOWEST POSITION. WILL CONTINUE TO MONITOR.
--- NOTE | 2019-08-20 07:15 | NUR ---
ASSESSMENT DONE. DENIES NEEDS
[2019-08-20 08:00] VITALS: BP 160/76
--- NOTE | 2019-08-20 09:19 | NUR ---
Nutrition Follow-up: MBSS yesterday; noted pt with moderate oropharyngeal dysphagia. Pt had not eaten much if any breakfast at time of visit this AM. Coughing. Also reports she has reflux. Drinks 2 Ensure/day. Diet: Cardiac, Mech Soft/Ground Meat with Gravy and Honey Thick Liquid PO intake: 25-100% Wt: 142# (08/18); 133# (08/13) Last BM: 08/19 Labs noted: Glu 137, Ca 8.2, Alb 2.3 Meds noted: Phenergan, Miralax, Zofran -Continue current diet as tolerated with consistencies per ST. -Monitor wt; daily wts ordered. -RD following.
[2019-08-20 12:43] VITALS: BP 129/63
--- NOTE | 2019-08-20 15:08 | NUR ---
I have reviewed this patient and I concur with the Shift Assessment completed by the Licensed Practical Nurse today this shift.
[2019-08-20 16:13] VITALS: BP 114/63
[2019-08-20 20:00] VITALS: BP 120/64
[2019-08-21] VITALS: BP 128/54
[2019-08-21 04:00] VITALS: BP 138/72
[2019-08-21 05:08] LABS: BASOPHILS 0.1 % (0-2); EOSINOPHILS 2.6 % (0-7); IMMATURE GRANULOCYTES 0.6 % (0-5); MCHC 31.7 g/dL (31.0-37.0); MEAN PLATELET VOLUME 9.8 fL (7.4-10.4); MONOCYTES 8.6 % (2-11); NEUTROPHILS 82.1 % (40-80); PLATELET COUNT 239 10x3/uL (130-400); RBC 4.19 10x6/uL (4.00-5.40); RDW 17.3 % (11.5-14.5); WBC 11.4 10x3/uL (4.8-10.8)
[2019-08-21 05:11] LABS: MCV 97.9 fL (80.0-100.0)
[2019-08-21 05:28] LABS: ALBUMIN 2.3 g/dL (3.4-5.0); ALKALINE PHOSPHATASE 53 U/L (46-116); ALT (SGPT) 28 U/L (10-68); BILIRUBIN - TOTAL 1.02 mg/dL (0.2-1.3); CALC OSMOLALITY 275 mosm/kg (275-300); CARBON DIOXIDE 31.8 mmol/L (21.0-32.0); CHLORIDE - SERUM 102 mmol/L (98-107); CREATININE - SERUM 0.6 mg/dL (0.6-1.3); GLUCOSE 116 mg/dL (74-106); POTASSIUM - SERUM 4.1 mmol/L (3.5-5.1); PROTEIN - SERUM 5.7 g/dL (6.4-8.2); SODIUM 137 mmol/L (136-145); UREA NITROGEN 14 mg/dL (7-18); eGFR NON AFRICAN AMERICAN > 90 mL/min (90-120)
[2019-08-21 07:56] VITALS: BP 132/81
[2019-08-21 11:19] VITALS: BP 124/66
[2019-08-21 15:15] VITALS: BP 121/61
--- NOTE | 2019-08-21 19:00 | NUR ---
REPORT RECEIVED. PT IN BED RESITNG WITH EYES CLOSE. RR EVEN AND LABORED. PT HARDER TO WAKE UP BUT STATES SHE IS JUST TIRED. CALL LIGHT IN REACH. WILL CTM
[2019-08-21 19:55] VITALS: BP 117/57
[2019-08-22 00:21] VITALS: BP 130/61
[2019-08-22 04:49] VITALS: BP 126/60
[2019-08-22 05:18] LABS: BASOPHILS 0.1 % (0-2); EOSINOPHILS 1.6 % (0-7); HEMATOCRIT 40.8 % (36.0-48.0); IMMATURE GRANULOCYTES 0.5 % (0-5); LYMPHOCYTES 3.1 % (15-50); MCH 31.2 pg (26.0-34.0); MCHC 31.9 g/dL (31.0-37.0); MCV 97.8 fL (80.0-100.0); MONOCYTES 6.7 % (2-11); PLATELET COUNT 253 10x3/uL (130-400); RBC 4.17 10x6/uL (4.00-5.40); WBC 13.2 10x3/uL (4.8-10.8)
[2019-08-22 05:41] LABS: ALBUMIN 2.3 g/dL (3.4-5.0); ALKALINE PHOSPHATASE 52 U/L (46-116); ALT (SGPT) 26 U/L (10-68); BILIRUBIN - TOTAL 1.02 mg/dL (0.2-1.3); CALC OSMOLALITY 279 mosm/kg (275-300); CALCIUM 8.1 mg/dL (8.5-10.1); CARBON DIOXIDE 29.9 mmol/L (21.0-32.0); CHLORIDE - SERUM 103 mmol/L (98-107); CREATININE - SERUM 0.6 mg/dL (0.6-1.3); POTASSIUM - SERUM 4.2 mmol/L (3.5-5.1); SODIUM 137 mmol/L (136-145); UREA NITROGEN 14 mg/dL (7-18); eGFR NON AFRICAN AMERICAN > 90 mL/min (90-120)
[2019-08-22 05:47] LABS: GLUCOSE 181 mg/dL (74-106)
[2019-08-22 07:53] VITALS: BP 106/69
--- NOTE | 2019-08-22 07:56 | NUR ---
PATIENT IS SITTING UP IN CHAIR AT BEDSIDE. SHE REPORTS BEING VERY UNCOMFORTABLE AND COUGHING ALOT. SHE REPORTS SPITTING UP BROWN SPUTUM. SHE HAS A DRY HOARSE VOICE. SHE ACKNOWLEDGES THAT SHE HAS A DNR AT [facility] AND WANTS THE ORDER CARRIED OVER HERE. WILL CONTINUE TO MONITOR CLOSELY.
[2019-08-22 11:28] VITALS: BP 115/60
[2019-08-22 15:32] VITALS: BP 109/58
--- NOTE | 2019-08-22 16:20 | NUR ---
IV IN RIGHT FOREARM BECAME DISLODGED. REMOVED WITH CATHETER INTACT. NEW 20 G START IN LEFT FOREARM ONE STICK. PATIENT TOLERATED.
--- NOTE | 2019-08-22 19:20 | NUR ---
REPORT RECEIVED. PT UP IN BED, FRIEND PRESENT AT BEDSIDE. RR EVEN AND UNLABORED ON 3.5L NC. HORSE, FREQUENT COUGH NOTED. NO S/SX OF DISTRESS NOTED AT THIS TIME. SRX2, CALL LIGHT IN REACH. NO FURTHER NEEDS EXPRESSED. WILL CTM.
[2019-08-22 20:30] VITALS: BP 117/54
[2019-08-23 00:45] VITALS: BP 114/53
[2019-08-23 04:25] VITALS: BP 111/56
[2019-08-23 05:06] LABS: BASOPHILS 0.1 % (0-2); EOSINOPHILS 2.6 % (0-7); HEMATOCRIT 36.6 % (36.0-48.0); HEMOGLOBIN 11.5 g/dL (12-16); IMMATURE GRANULOCYTES 0.6 % (0-5); LYMPHOCYTES 5.7 % (15-50); MCH 30.9 pg (26.0-34.0); MCHC 31.4 g/dL (31.0-37.0); MCV 98.4 fL (80.0-100.0); MEAN PLATELET VOLUME 9.8 fL (7.4-10.4); MONOCYTES 7.6 % (2-11); NEUTROPHILS 83.4 % (40-80); PLATELET COUNT 248 10x3/uL (130-400); RBC 3.72 10x6/uL (4.00-5.40); RDW 17.2 % (11.5-14.5); WBC 10.5 10x3/uL (4.8-10.8)
[2019-08-23 05:25] LABS: ALBUMIN 2.1 g/dL (3.4-5.0); ALKALINE PHOSPHATASE 50 U/L (46-116); ALT (SGPT) 25 U/L (10-68); BILIRUBIN - TOTAL 0.75 mg/dL (0.2-1.3); CALC OSMOLALITY 280 mosm/kg (275-300); CALCIUM 7.8 mg/dL (8.5-10.1); CARBON DIOXIDE 33.4 mmol/L (21.0-32.0); CHLORIDE - SERUM 104 mmol/L (98-107); CREATININE - SERUM 0.5 mg/dL (0.6-1.3); POTASSIUM - SERUM 3.6 mmol/L (3.5-5.1); PROTEIN - SERUM 5.4 g/dL (6.4-8.2); SODIUM 140 mmol/L (136-145); UREA NITROGEN 15 mg/dL (7-18); eGFR NON AFRICAN AMERICAN > 90 mL/min (90-120)
[2019-08-23 05:43] LABS: GLUCOSE 115 mg/dL (74-106)
--- NOTE | 2019-08-23 07:55 | NUR ---
PT SITTING UP ON SIDE OF BED. SOB ON 3L NC. PT STATES SHE IS ALWAYS SOB. DENIES NEEDS OR PAIN AT THIS TIME. ALERT, ORIENTED TO SELF AND SITUATION. BED IN LOWEST POSITION. CALL LIGHT WITHIN REACH. WILL CONTINUE TO MONITOR.
[2019-08-23 08:00] VITALS: BP 130/63
--- NOTE | 2019-08-23 11:02 | NUR ---
WALL OXYGEN LEAKING, TRANSFERED TO ROOM [address] CANO
--- NOTE | 2019-08-23 11:12 | EC ---
PATIENT:LAZARO MCKENZIE DATE OF SERVICE: 08/13/19 SEX: F MEDICAL RECORD: [id number] DATE OF : 30 LOCATION:D.M2 D.210 AGE OF PATIENT: 89 ADMISSION DATE: 08/13/19 REFERRING PHYSICIAN: INTERPRETING PHYSICIAN: ABILIO MESSER MD ECHOCARDIOGRAM REPORT ECHO CHARGES 4 ECHO COMPLETE Date: 08/13/19 CLINICAL DIAGNOSIS: CHF XH CAD/CABG ECHOCARDIOGRAPHIC MEASUREMENTS (adult normal given) AC root (d.<3.7cm) 2.9 cm LV Septum d (<1.2 cm> 0.90 cm Valve Excursion 0.90 cm LV Septum (systole) 1.1 cm Left Atria (s.<4.0cm> 4.3 cm LVPW d(<1.2cm) 1.2 cm RV (d.<2.3cm) 4.2 cm LVPW (sytole) 1.5 cm LV diastole(<5.6CM) 4.2 cm MV E-F(>70mm/sec) cm LV systole 2.2 cm LVOT Diameter 2.1 cm MV exc.(>10mm) 1.9 cm Est.ejection fraction (50-75%) % DOPPLER: LVIT cm/sec A 37.0 cm/sec E 121.0 cm/sec LA cm/sec RVSP 57 mmHg LVOT 69 cm/sec AOP1/2T m/s Asc. Ao 291 cm/sec RVOT 52 cm/sec RA cm/sec PA 147 cm/sec AV Gradient Peak 33.78mmHg AV Mean 22.90mmHg AV Area 0.90 cm MV Gradient Peak 6.28 mmHg MV Mean 1.47 mmHg MV Area cm COMMENTS: Consultative Sales Associate: Janet OWEN Clinical Data Specialist: 1 Dr. Messer TAPE# PACS Pericardial Effusion N DATE OF SERVICE: ECHOCARDIOGRAM FINDINGS: 1. Left ventricular chamber size is within normal limits. Left ventricular systolic function is normal. Overall ejection fraction estimated at 55% to 60%. 2. Left atrium is enlarged at 4.3 cm. Right atrium and right ventricle chamber sizes are within normal limits. 3. Valvular structures: Aortic valve demonstrates moderate calcific aortic ECHOCARDIOGRAM REPORT [id number] LAZARO MCKENZIE stenosis, valve area calculates to 0.9 cm-squared with a gradient 33 mmHg across the valve. The remaining valvular structures have normal structure and motion. 4. Doppler interrogation elsewise reveals mild mitral regurgitation, severe tricuspid regurgitation, no other valvular insufficiency or stenosis; however, pulmonary systolic pressure is elevated estimated at 57 mmHg. 5. No evidence of pericardial effusion or left ventricular thrombus. TRANSINT:[id number] Voice Confirmation ID: [id number] DOCUMENT ID: [id number] ABILIO MESSER MD at 1112 CC: [id number] DICTATION DATE: 08/14/1937 RAW JUICE WEIGHER: 08/14/19 1044 ADM IN [facility] [address] [place] [id number]
--- NOTE | 2019-08-23 11:12 | CN ---
PATIENT NAME:LAZARO MCKENZIE MEDICAL RECORD: [id number] : 30 LOCATION:[place] D.2106 ADMIT DATE: 08/13/19 ACCOUNT: [id number] CONSULTING PHYSICIAN: ABILIO TAPIA MD REFERRING PHYSICIAN: EMERY BELLO MD DATE OF CONSULTATION: 08/13/2019 Cardiology Consultation DIAGNOSES: 1. Shortness of breath. 2. Dyspnea on exertion. 3. Pneumonia. 4. Atrial fibrillation, chronic. 5. Chronic obstructive pulmonary disease. 6. Hypertension. 7. Pradaxa anticoagulation. HISTORY OF PRESENT ILLNESS: Ms. Mckenzie presents with shortness of breath and dyspnea on exertion, found to have pneumonia. She is in atrial fibrillation; however, this is not new. The atrial fibrillation is chronic. She is on Cardizem, digoxin, and Pradaxa for the atrial fibrillation. She has had no chest pain or chest discomfort, shortness of breath associated with pneumonia. Otherwise, no other symptomatology. Her EKG is with atrial fibrillation but no ST-T changes or abnormalities. PHYSICAL EXAMINATION: CONSTITUTIONAL/GENERAL APPEARANCE: Well nourished, well developed, appears stated age. EYES: Lids and conjunctivae noninjected. No discharge. No pallor. ENT: Lips within normal limit. No cyanosis. No pallor. NECK: Carotid arteries, bilateral normal upstroke. No bruits. No thrills. No jugular venous pressure or distention. CERVICAL LYMPH NODES: Nontender. Nonenlarged. THYROID: Not enlarged. No nodules. CARDIOVASCULAR: Irregularly irregular, in atrial fibrillation. RESPIRATORY: Respiratory effort, unlabored. Normal curvature. No thoracic deformity. No chest wall tenderness. Percussion, resonant. Auscultation, clear. No wheezes, no rales, no rhonchi. ABDOMEN: Soft, nondistended, nontender. No abdominal pain, no vomiting and normal appetite. MUSCULOSKELETAL: No joint tenderness, normal gait, normal tone. SKIN: Warm and dry. OVERALL IMPRESSION: Atrial fibrillation, chronic, stable. At this point, continue her current medications. No other workup or treatment is necessary for the atrial fibrillation. TRANSINT:[id number] Voice Confirmation ID: [id number] DOCUMENT ID: [id number] CONSULT REPORT [id number] LAZARO MCKENZIE ABILIO TAPIA MD at 1112 CC: [id number] DICTATION DATE: 08/13/19 1420 CLINICAL TEAM LEAD: 08/13/19 2238 ADM IN [place] [id number] [place] [id number]
--- NOTE | 2019-08-23 11:38 | NUR ---
Rehab Note- Acute Inpatient Rehab prescreen order received. The patient is a good candidate for acute inpatient rehab when medically stable- currently on 6L High Flow O2. Will continue to follow at this time. Thank you for this referral! Jadyn Ramirez RN Clinical Liaison, [facility] Rehab
[2019-08-23 15:03] VITALS: BP 116/63
--- NOTE | 2019-08-23 18:56 | NUR ---
OT NOTE: PT SITTING AT EOB. PT COMPLETED SIT TO STAND WITH SBA. PT COMPLETED SITTING BALANCE ACTIVITIES WHILE ALEXANDRA SOCKS WITH SETUP. PT COMPLETED HAIR BRUSHING WITH SETUP. PT COMPLETED BUE AROM AXS AT EOB. PT EXHIBITED INCREASED I WITH ADLS. [phone] THANK YOU, FRANDY CUENCA
--- NOTE | 2019-08-23 19:36 | NUR ---
RECEIVED UP IN BED WITH EYES OPEN AND TV ON. ALERT AND ORIENTED X4. UP AD ROMMEL TO B/R. O2@ 5 LITERS PER HF N/C. IV TO LEFT FA WITH NA @ 10CC/HR. FREQUENT COUGH THAT IS PRODUCTIVE. DENIES ANY NEEDS.
[2019-08-23 20:00] VITALS: BP 127/70
[2019-08-24] VITALS: BP 123/59
--- NOTE | 2019-08-24 03:33 | NUR ---
AWAKE SITTING UP ON SIDE OF BED. OFFERED SNACK AND ACCEPTED.
[2019-08-24 04:29] VITALS: BP 131/70
[2019-08-24 06:53] LABS: BASOPHILS 0.2 % (0-2); EOSINOPHILS 0.9 % (0-7); HEMATOCRIT 39.1 % (36.0-48.0); HEMOGLOBIN 12.3 g/dL (12-16); IMMATURE GRANULOCYTES 0.3 % (0-5); LYMPHOCYTES 4.4 % (15-50); MCHC 31.5 g/dL (31.0-37.0); MCV 98.5 fL (80.0-100.0); MEAN PLATELET VOLUME 9.6 fL (7.4-10.4); MONOCYTES 7.7 % (2-11); NEUTROPHILS 86.5 % (40-80); PLATELET COUNT 270 10x3/uL (130-400); RBC 3.97 10x6/uL (4.00-5.40); RDW 17.2 % (11.5-14.5); WBC 9.1 10x3/uL (4.8-10.8)
[2019-08-24 06:59] LABS: ALBUMIN 2.5 g/dL (3.4-5.0); ALKALINE PHOSPHATASE 59 U/L (46-116); ALT (SGPT) 30 U/L (10-68); BILIRUBIN - TOTAL 0.87 mg/dL (0.2-1.3); CALC OSMOLALITY 283 mosm/kg (275-300); CALCIUM 8.5 mg/dL (8.5-10.1); CARBON DIOXIDE 30.9 mmol/L (21.0-32.0); CHLORIDE - SERUM 102 mmol/L (98-107); CREATININE - SERUM 0.7 mg/dL (0.6-1.3); GLUCOSE 175 mg/dL (74-106); POTASSIUM - SERUM 3.9 mmol/L (3.5-5.1); PROTEIN - SERUM 6.4 g/dL (6.4-8.2); SODIUM 139 mmol/L (136-145); UREA NITROGEN 17 mg/dL (7-18); eGFR NON AFRICAN AMERICAN 83 mL/min (90-120)
--- NOTE | 2019-08-24 07:20 | NUR ---
RECIEVE REPORT. ALERT AND ORIENTED X4. SITTING UP ON SIDE OF BED RECIEVING UPDRAFT TREATMENT. DENIES ANY NEEDS AT THIS TIME. CONTINUE PLAN OF CARE AND SAFETY PRECAUTIONS.
[2019-08-24 10:33] VITALS: BP 144/68
--- NOTE | 2019-08-24 14:35 | NUR ---
Nutrition Follow-up: Not eating well. Does not like the thickened liquids; thickened liquids needed per STAFF CONSULTANT 2/2 aspiration. Drinking 2-3 Ensure/day. Diet: Cardiac, Mech Soft/Ground Meat with Gravy, Honey Thick Liquids, Ensure TID PO intake: 25-55% Wt: 132# (08/22); 142# (08/18); 133# (08/13) Last BM: 08/24 Labs noted: Glu 175, Alb 2.5 Meds noted: Phenergan, Miralax -Rec appetite stimulant. -Encourage PO intake. -Need new wt; noted daily wts ordered. -RD following.
[2019-08-24 15:12] VITALS: BP 113/60
--- NOTE | 2019-08-24 15:38 | NUR ---
OT NOTE: PT PERFORMED MUCH BETTER TODAY. IN ROOM AMBULATION WITH WALKER AND MIN ASSIST..FUNCTIONAL TRANSFERS WITH MIN/CGA; PT FUNCTIONAL ENDURANCE IS IMPROVING. SHE WAS ABLE TO AMB WITH P.T OVER 50 FT TODAY. PERFORMED GROOMING AND SIMPLE ADLS WITH SET UP; PT AWARE AND KNOWLEDGABLE REGARDING THICKENED LIQUIDS.. PROVIDED HER WITH THICKENED WATER..PT WITH NO COMPLAINTS. MONET WASSERMAN, OTR/L
--- NOTE | 2019-08-24 16:32 | MORECARE ---
CASE MANAGEMENT DISCHARGE SUMMARY PATIENT: LAZARO MCKENZIE UNIT: [id number] ADM DATE: 08/13/19 AGE: 89 : 30 SEX: F ROOM/BED: D.2140 AUTHOR: HA BRANHAM PHYSICIAN: REFERRING PHYSICIAN: EMERY BELLO MD DATE OF SERVICE: 08/24/19 Discharge Plan Patient Name: LAZARO MCKENZIE Facility: [facility]:[place] : 1930 Planned Disposition: Inpatient Rehab Anticipated Discharge Date: 08/24/19 Discharge Date: Expected LOS: 11 Initial Reviewer: [email or web address] Initial Review Date: 08/24/2019 Generated: 08/24/19 5:31 pm Patient Name: LAZARO MCKENZIE Page [phone] at 1632 All edits/amendments must be made on the electronic document DICTATION DATE: 08/24/19 163 IMPOSER: JARROD 08/24/19 1632 RPT#: [id number] DC DATE: STATUS: ADM IN [facility] [address] [place] [address] END OF REPORT
--- NOTE | 2019-08-24 16:40 | MORECARE ---
CASE MANAGEMENT DISCHARGE SUMMARY PATIENT: LAZARO MCKENZIE UNIT: [id number] ADM DATE: 08/13/19 AGE: 89 : 30 SEX: F ROOM/BED: D.2759 AUTHOR: CARROL,DOC PHYSICIAN: REFERRING PHYSICIAN: EMERY BELLO MD DATE OF SERVICE: 08/24/19 Discharge Plan Patient Name: LAZARO MCKENZIE Facility: [facility]:[place] : 1930 Planned Disposition: Inpatient Rehab Anticipated Discharge Date: 08/24/19 Discharge Date: Expected LOS: 11 Initial Reviewer: [email or web address] Initial Review Date: 08/24/2019 Generated: 08/24/19 5:40 pm Comments DCP- Discharge Planning Updated by [email or web address]: Junito Velez on 08/24/19 3:[address] Patient Name: LAZARO MCKENZIE Admission Status: ER Accout number: [id number] Admission Date: 08-13-2019 : 1930 Admission Diagnosis: Attending: EMERY BELLO Current LOS: 11 Anticipated DC Date: 08-24-2019 Planned Disposition: Inpatient Rehab Primary Insurance: MEDICARE A & B Discharge Planning Comments: CM RECEIVED ORDER FOR INPATIENT REHAB PRESCREENING. CM MET WITH PT IN ROOM TO DISCUSS DISCHARGE PLANNING AND NEEDS. PT REPORTS LIVING AT [facility] INDEPENDENTLY AND ALONE; PT REPORTS HAVING EMERGENCY PENDENT AND PULL CORDS AT THE FACILITY IF NEEDED. PT HAS NEBULIZER AND THREE WHEELED WALKER FROM [facility]. PT HAS NO OUTSIDE SERVICES ASSISTING IN THE APARTMENT BUT HAS HELP AVAILABLE IF NEEDED. CM DISCUSSED AVAILABILITY OF HOME HEALTH, REHAB SERVICES AND MEDICAL EQUIPMENT. PT KNOWS SHE NEEDS REHAB WITH PLAN TO GO BACK TO [facility] AFTER REHAB. CM DISCUSSED REHAB OPTIONS, LOCATIONS AND PROVIDERS. PT WOULD LIKE TO STAY AT [facility] FOR REHAB. CHOICE SIGNED. IMPORTANT MESSAGE FROM MEDICARE PROVIDED AND EXPLAINED. CM MET WITH CARE TEAM AT INTERDISCIPLINARY TEAM MEETING, DORENE GARCIA IS OK WITH DISCHARGE TO REHAB TODAY IF OK WITH PULMONARY. JERE OF INPATIENT REHAB REPORTS THEY CAN ACCEPT TODAY IF STABLE FOR DISCHARGE TO REHAB. PT PLANS TO DISCHARGE TO INPATIENT REHAB AT [facility]. INPATIENT REHAB AT [facility] PLANS TO ACCEPT; NOTIFY REHAB WHEN DISCHARGE ORDER IS RECEIVED FOR FUTHER INSTRUCTIONS FOR ADMISSION TO INPATIENT REHAB. Heavy Truck Technician: Junito Velez DCPIA - Discharge Planning Initial Assessment Updated by [email or web address]: Junito Velez on 08/24/19 4:33 pm * Is the patient Alert and Oriented? Yes * How many steps to enter\exit or inside your home? NONE * PCP DR. CELAYA * Pharmacy [facility] * Preadmission Environment Assisted Living * Facility Name [facility] * ADLs Independent * Equipment Nebulizer Rolling Walker * Other Equipment THREE WHEELED WALKER [place] - PROVIDER * List name and contact numbers for known caregivers / representatives who currently or will assist patient after discharge: LALITOStephen AYALA FLORY, * Verbal permission to speak to the caregivers and representatives has been obtained from the patient. Yes * Community resources currently utilized None * Please name any agencies selected above. NONE * Additional services required to return to the preadmission environment? Yes * Can the patient safely return to the preadmission environment? Yes * Has this patient been hospitalized within the prior 30 days at any hospital? No Coverage Notice Reviewer: WAYNE Velez Notice Issued Date-Time: 08/24/2019 8:50 Notice Type: IM Discharge Notice Notice Delivered To: Patient Relationship to Patient: Flower Cutter Name: Delivery Method: HAND - Hand Delivered [place] Days: Prior Verbal Notification: Recipient Understood Notice: Yes Recipient Signature: Yes Med Rec Note Co-signed by Attending: Coverage Notice Comment: Reviewer: [email or web address] Velez Notice Issued Date-Time: 08/24/2019 8:50 Notice Type: Patient Choice Letter Notice Delivered To: Patient Relationship to Patient: Flower Cutter Name: Delivery Method: HAND - Hand Delivered [place] Days: Prior Verbal Notification: Recipient Understood Notice: Yes Recipient Signature: Yes Med Rec Note Co-signed by Attending: Coverage Notice Comment: [facility] INPATIENT REHAB Last DP export: 08/24/19 3:32 pm Patient Name: LAZARO MCKENZIE Page [phone] at 1640 All edits/amendments must be made on the electronic document DICTATION DATE: 08/24/19 1640 LPN RN: JARROD 08/24/19 1640 RPT#: [id number] DC DATE: STATUS: ADM IN [facility] [address] [facility] [place] [address] END OF REPORT
--- NOTE | 2019-08-24 16:53 | NUR ---
OT NOTE: PT COMPLETED ADL MOB WITH SBA. PT COMPLETED HYGIENE AND GROOMING TASKS WITH SETUP. PT COMPLETED BUE AROM EXS AT EOB. [phone] THANK YOU, FRANDY CUENCA
--- NOTE | 2019-08-24 17:25 | NUR ---
ALERT AND ORIENTED X4. SITTING UP ON SIDE OF BED EATING. LT FA IV INFILTRATED. RESITE IV RT FA 20G SUCCESSFUL X1 ATTEMPT. OXYGEN THERAPY CONTINUED. CONTINUE PLAN OF CARE AND SAFETY PRECAUTIONS.
[2019-08-24 20:00] VITALS: BP 142/70
--- NOTE | 2019-08-24 20:13 | NUR ---
LYING IN BED WITH WATCHING TV. O2 NASAL CANULA AT 5L. PT ALERT AND ORIENTED x4. ASSISTED PT TO RESTROOM. CONTINENT OF BOWELL AND URINE. VOID x1. PT ADVISED TO CALL FOR HELP WHEN GETTING IN AND OUT OF BED. WILL CONTINUE TO MONITOR.
[2019-08-25 00:20] VITALS: BP 122/67
--- NOTE | 2019-08-25 02:40 | NUR ---
I have reviewed this patient and I concur with the Shift Assessment completed by the Licensed Practical Nurse today this shift.
[2019-08-25 04:00] VITALS: BP 132/79
--- NOTE | 2019-08-25 04:37 | NUR ---
LYING IN BED RESTING WITH EYES CLOSED. RESPIRATIONS EVEN AND UNLABORED. NO SIGNS OR SYMPTOMS OF DISTRESS. NO COMPLAINTS OF PAIN AT THIS TIME. AMBULATES TO RESTROOM WITH STANDBY ASSIST. SOME COUGHING DURING THE NIGHT PRN COUGH MEDICINE GIVEN. NASAL CANULA 5L. BED IN LOWEST POSITION AND CALL LIGHT WITHIN REACH. PT ADVISE TO CALL FOR ASSIST WHEN GETTING IN AND OUT OF BED. WILL CONTINUE TO MONITOR
[2019-08-25 06:53] LABS: BASOPHILS 0.2 % (0-2); EOSINOPHILS 1.9 % (0-7); HEMATOCRIT 39.2 % (36.0-48.0); HEMOGLOBIN 12.4 g/dL (12-16); IMMATURE GRANULOCYTES 0.5 % (0-5); LYMPHOCYTES 6.9 % (15-50); MCH 31.1 pg (26.0-34.0); MCHC 31.6 g/dL (31.0-37.0); MCV 98.2 fL (80.0-100.0); MEAN PLATELET VOLUME 9.5 fL (7.4-10.4); NEUTROPHILS 84.5 % (40-80); PLATELET COUNT 253 10x3/uL (130-400); RBC 3.99 10x6/uL (4.00-5.40); RDW 17.3 % (11.5-14.5); WBC 8.4 10x3/uL (4.8-10.8)
[2019-08-25 07:26] LABS: ALBUMIN 2.3 g/dL (3.4-5.0); ALKALINE PHOSPHATASE 55 U/L (46-116); ALT (SGPT) 27 U/L (10-68); BILIRUBIN - TOTAL 0.81 mg/dL (0.2-1.3); CALCIUM 7.7 mg/dL (8.5-10.1); CARBON DIOXIDE 30.8 mmol/L (21.0-32.0); CHLORIDE - SERUM 103 mmol/L (98-107); POTASSIUM - SERUM 3.8 mmol/L (3.5-5.1); PROTEIN - SERUM 5.5 g/dL (6.4-8.2); SODIUM 140 mmol/L (136-145)
[2019-08-25 07:37] LABS: CALC OSMOLALITY 278 mosm/kg (275-300); CREATININE - SERUM 0.5 mg/dL (0.6-1.3); GLUCOSE 113 mg/dL (74-106); UREA NITROGEN 11 mg/dL (7-18); eGFR NON AFRICAN AMERICAN > 90 mL/min (90-120)
[2019-08-25 09:09] VITALS: BP 134/75
--- NOTE | 2019-08-25 12:50 | NUR ---
OT NOTE: PT DOING VERY WELL; ABLE TO AMB TO AND FROM BATHROOM WITH ASSIST OF IV POLE AND CGA. ABLE TO PERFORM TOILETING AND CLOTHING MGMT WITH CGA; FUNCTIONAL TRANSFERS WITH CGA/MIN ASSIST; ABLE TO AMB THROUGHOUT HALLWAY WITH ASSIST FOR 02 AND IV AND CGA X 120 FT TO IMPROVE FUNCTIONAL ENDURANCE. PT DOING WELL. NO LOB OR REST BREAK REQUIRED. PT WITH C/O CONTINUAL COUGHING. MONET WASSERMAN, OTR/L
[2019-08-25 13:48] VITALS: BP 122/94
--- NOTE | 2019-08-25 14:30 | NUR ---
RIGHT FA 20G IV INFILTRATED DC'D WITH CATH INTACT.
--- NOTE | 2019-08-25 14:57 | NUR ---
RIGHT HAND 20G IV INSERTED ON FIRST ATTEMPT. NS INFUSING AT 75ML/HR.
--- NOTE | 2019-08-25 16:10 | NUR ---
OT NOTE: PT COMPLETED SIT TO STAND AND ADL MOB WITH SPV. PT COMPLETED HYGIENE TASKS WITH SPV. PT COMPLETED BUE AROM EXS. PT NOTED THAT IV NEEDED ATTENTION. WISE NOTIFIED NURSING. NURSING ASSESSED AND STATED A NEW ONE WOULD BE PLACED. [phone] THANK YOU, FRANDY CUENCA
--- NOTE | 2019-08-25 16:13 | NUR ---
DISCHARGE INSTRUCTIONS GIVEN TO PT. PT HAS NO FURTHER QUESTIONS. CHART COPY SIGNED. SARAH SALAZAR TO PICK PT UP.
[2019-08-25 17:12] VITALS: BP 131/71
--- NOTE | 2019-08-25 18:11 | NUR ---
I have reviewed this patient and I concur with the Shift Assessment completed by the Licensed Practical Nurse today this shift.
[2019-08-25 20:56] VITALS: BP 123/60
--- NOTE | 2019-08-25 22:00 | NUR ---
REPORT RECIEVED AND ROUNDING COMPLETE. PATIENT SITTING IN HER CHAIR ASKING FOR COUGH MEDS, IN FORMED PATINET IT IS NOT TIME YET. PATIENT HAS HF NC AT 6L O2. PATIENT IS SOB AND HAS A FREQUENT COUCH. PATIENT STATES SHE HAS NO OTHER NEEDS AT THIS TIME. CALL LIGHT WITHIN REACH AND BED IN LOWEST LOCKED POSITION.
[2019-08-26 00:30] VITALS: BP 135/60
[2019-08-26 04:30] VITALS: BP 130/65
[2019-08-26 05:31] LABS: BASOPHILS 0.2 % (0-2); EOSINOPHILS 1.4 % (0-7); HEMATOCRIT 35.1 % (36.0-48.0); HEMOGLOBIN 11.1 g/dL (12-16); IMMATURE GRANULOCYTES 0.2 % (0-5); LYMPHOCYTES 7.2 % (15-50); MCH 30.5 pg (26.0-34.0); MCHC 31.6 g/dL (31.0-37.0); MCV 96.4 fL (80.0-100.0); MEAN PLATELET VOLUME 9.1 fL (7.4-10.4); MONOCYTES 7.4 % (2-11); NEUTROPHILS 83.6 % (40-80); PLATELET COUNT 243 10x3/uL (130-400); RBC 3.64 10x6/uL (4.00-5.40); RDW 17.1 % (11.5-14.5); WBC 9.1 10x3/uL (4.8-10.8)
[2019-08-26 05:52] LABS: ALBUMIN 2.2 g/dL (3.4-5.0); ALKALINE PHOSPHATASE 56 U/L (46-116); ALT (SGPT) 27 U/L (10-68); BILIRUBIN - TOTAL 0.55 mg/dL (0.2-1.3); CALC OSMOLALITY 284 mosm/kg (275-300); CALCIUM 7.9 mg/dL (8.5-10.1); CHLORIDE - SERUM 106 mmol/L (98-107); CREATININE - SERUM 0.4 mg/dL (0.6-1.3); GLUCOSE 127 mg/dL (74-106); POTASSIUM - SERUM 3.7 mmol/L (3.5-5.1); PROTEIN - SERUM 5.2 g/dL (6.4-8.2); SODIUM 142 mmol/L (136-145); UREA NITROGEN 12 mg/dL (7-18); eGFR NON AFRICAN AMERICAN > 90 mL/min (90-120)
--- NOTE | 2019-08-26 08:10 | NUR ---
PATIENT IS AWAKE AND ALERT. SHE IS SITTING UP IN THE SIDE OF THE BED, AND HAS HAD HER BREATHING TREATMENT. SHE DENIES ANY NEEDS AT THIS TIME. SHE HAS REPORTED THAT YESTERDAY HER RIGHT LEG HAS HAD MORE SWELLING. WILL CONTINUE TO MONITOR CLOSELY AND WATCH ORDERS.
[2019-08-26 10:55] VITALS: BP 123/61
[2019-08-26 14:14] VITALS: BP 121/57
--- NOTE | 2019-08-26 15:40 | NUR ---
OT NOTE: (AM) PT COMPLETED SITTING BALANCE WITH SBA. PT COMPLETED ADL MOB WITH FREQUENT REST BREAKS REQUIRED CGA. PT COMPLETED UE AROM AX. PT COMPLETED UE AROM EXS. (PM) PT COMPLETED DYNAMIC STANDING BALANCE AXS WITH FUNCTIONAL TASKS WITH CGA. PT COMPLETED HYGIENE TASKS AT SINK LEVEL WITH CGA. PT COMPLETED BUE FM TASKS WITH ADLS. [phone] THANK YOU, FRANDY CUENCA
[2019-08-26 17:24] VITALS: BP 106/47
[2019-08-26 20:00] VITALS: BP 123/66
[2019-08-27 04:00] VITALS: BP 112/55
--- NOTE | 2019-08-27 05:10 | NUR ---
I have reviewed this patient and I concur with the Shift Assessment completed by the Licensed Practical Nurse today this shift.
[2019-08-27 06:59] LABS: BASOPHILS 0.2 % (0-2); EOSINOPHILS 1.2 % (0-7); HEMATOCRIT 37.1 % (36.0-48.0); HEMOGLOBIN 11.9 g/dL (12-16); IMMATURE GRANULOCYTES 0.3 % (0-5); LYMPHOCYTES 6.7 % (15-50); MCH 30.6 pg (26.0-34.0); MCHC 32.1 g/dL (31.0-37.0); MCV 95.4 fL (80.0-100.0); MONOCYTES 5.7 % (2-11); NEUTROPHILS 85.9 % (40-80); PLATELET COUNT 247 10x3/uL (130-400); RBC 3.89 10x6/uL (4.00-5.40); WBC 9.7 10x3/uL (4.8-10.8)
[2019-08-27 07:20] LABS: ALBUMIN 2.1 g/dL (3.4-5.0); ALKALINE PHOSPHATASE 53 U/L (46-116); ALT (SGPT) 23 U/L (10-68); BILIRUBIN - TOTAL 0.84 mg/dL (0.2-1.3); CALC OSMOLALITY 280 mosm/kg (275-300); CALCIUM 7.8 mg/dL (8.5-10.1); CHLORIDE - SERUM 105 mmol/L (98-107); CREATININE - SERUM 0.5 mg/dL (0.6-1.3); GLUCOSE 119 mg/dL (74-106); POTASSIUM - SERUM 3.8 mmol/L (3.5-5.1); PROTEIN - SERUM 5.3 g/dL (6.4-8.2); SODIUM 141 mmol/L (136-145); UREA NITROGEN 11 mg/dL (7-18); eGFR NON AFRICAN AMERICAN > 90 mL/min (90-120)
--- NOTE | 2019-08-27 07:50 | NUR ---
PATIENT IS ALERT AND AWAKE. SHE HAS BEEN UP TO THE BATHROOM WITH MINIMAL STAND BY ASSIST. SHE IS ABLE TO STAND BY THE SINK AND WASH HER HANDS. DENIES ANY NEEDS AT THIS TIME. SHE IS SITTING UP IN HER CHAIR.
[2019-08-27 09:50] VITALS: BP 117/57
--- NOTE | 2019-08-27 10:16 | NUR ---
PATIENT O2 WAS AT 90, HOWEVER WHEN SHE TOOK A FEW BREATHS THROUGH HER NOSE IT WENT UP TO 93.
--- NOTE | 2019-08-27 11:47 | NUR ---
OT NOTE: PT COMPLETED SIT TO STAND WITH SPV. PT COMPLETED ORAL HYGIENE AND GROOMING TASKS AT SINK LEVEL WITH SPV. [phone] THANK YOU, FRANDY CUENCA
[2019-08-27 17:23] VITALS: BP 129/68
--- NOTE | 2019-08-27 17:29 | NUR ---
PATIENT IS SITTING UP IN BED, SHE DENIES ANY NEEDS AT THIS TIME. SHE HAS HAD A BAD COUGH ON AND OFF. SHE IS RESTING QUIETLY AT THIS TIME.
--- NOTE | 2019-08-27 19:11 | NUR ---
GREETED PATIENT AND INTRODUCED MYSELF HER NURSE. PATIENT IS CURRENTLY LAYING IN BED RESTING. O2 AT 4L HIGH FLOW NC IN USE. RESPIRATIONS EVEN. NO S/S OF DISTRESS. SR UP X 2. BED IN LOWEST POSITION. AOX4. PT. STATES NO PAIN AT THIS TIME. DENIES ANY FURTHER NEEDS. CALL LIGHT IN REACH.
[2019-08-27 20:00] VITALS: BP 129/72
--- NOTE | 2019-08-27 23:23 | NUR ---
PT. AWAKE LAYING IN BED WATCHING TV. O2 AT 6L IN USE VIA HIGH FLOW NC. RESPIRATIONS EVEN. NO S/S OF DISTRESS. CALL LIGHT IN REACH.
[2019-08-28] VITALS: BP 137/71
--- NOTE | 2019-08-28 02:01 | NUR ---
PT. AWAKE AND SITTING ON SIDE OF BED. DENIES ANY NEEDS. CALL LIGHT IN REACH.
[2019-08-28 04:00] VITALS: BP 137/71
[2019-08-28 06:44] LABS: BASOPHILS 0.3 % (0-2); EOSINOPHILS 2.7 % (0-7); HEMOGLOBIN 12.7 g/dL (12-16); IMMATURE GRANULOCYTES 0.5 % (0-5); LYMPHOCYTES 9.1 % (15-50); MCH 31.4 pg (26.0-34.0); MCHC 32.6 g/dL (31.0-37.0); MCV 96.5 fL (80.0-100.0); MEAN PLATELET VOLUME 9.1 fL (7.4-10.4); MONOCYTES 6.1 % (2-11); NEUTROPHILS 81.3 % (40-80); PLATELET COUNT 287 10x3/uL (130-400); RBC 4.04 10x6/uL (4.00-5.40); WBC 8.8 10x3/uL (4.8-10.8)
[2019-08-28 07:35] LABS: ALBUMIN 2.3 g/dL (3.4-5.0); ALKALINE PHOSPHATASE 67 U/L (46-116); ALT (SGPT) 28 U/L (10-68); BILIRUBIN - TOTAL 0.82 mg/dL (0.2-1.3); CALCIUM 8.5 mg/dL (8.5-10.1); CARBON DIOXIDE 32.3 mmol/L (21.0-32.0); CHLORIDE - SERUM 104 mmol/L (98-107); CREATININE - SERUM 0.6 mg/dL (0.6-1.3); GLUCOSE 100 mg/dL (74-106); POTASSIUM - SERUM 3.6 mmol/L (3.5-5.1); PROTEIN - SERUM 6.5 g/dL (6.4-8.2); SODIUM 143 mmol/L (136-145); eGFR NON AFRICAN AMERICAN > 90 mL/min (90-120)
[2019-08-28 07:38] LABS: CALC OSMOLALITY 282 mosm/kg (275-300); UREA NITROGEN 7 mg/dL (7-18)
[2019-08-28 10:12] VITALS: BP 136/69
--- NOTE | 2019-08-28 10:59 | NUR ---
PATIENT UP TO BS CHAIR. O2 IN PLACE. ORDERED SOUP FOR PT. PATIENT DENIES ANY OTHER NEEDS OR PAIN. WILL CONTINUE TO MONITOR. CALL LIGHT IN REACH.
--- NOTE | 2019-08-28 11:10 | NUR ---
PATIENT STATES HAVING TROUBLE BREATHIBG. STATES FEELSN LIKE SHE DROWNING. CALLED RESPIRATORY IN ROOM. RT INITATING BREATHING TMT. RESPIRATORY REMAINING IN ROOM. WILL CONTINUE TO MONITOR. PT IN BS WITH CALL LIGHT IN LAP.
[2019-08-28 12:00] VITALS: BP 110/56
--- NOTE | 2019-08-28 12:11 | NUR ---
PATIENT SITTING UP IN BS CHAIR. STATES FEELS SOME BETTER AND BREATHING EASIER. PATIENT IS STABLE AND VSS. PATIENT DENIES ANY NEEDS OR PAIN. FRINED AT BS. WILL CONTINUE TO MONITOR. CALL LIGHT IN REACH.
--- NOTE | 2019-08-28 17:19 | NUR ---
PATIENT IS STABLE AND VSS. PATIENT SITTING UP IN BS CHAIR EATING SUPPER. PATIENT DENIES ANY NEEDS OR PAIN. WILL CONTINUE TO MONITOR. SR UP X 2 BED IN LOW POSITION AND CALL LIGHT IN REACH.
--- NOTE | 2019-08-28 19:10 | NUR ---
BEDSIDE REPORT RECEIVED FROM DAY SHIFT, PT CARE ASSUMED. INTRODUCED SELF AND WROTE NAME ON BOARD. PT SITTING UP IN BED, WATCHING TV, AAOX4. DENIES PAIN OR ANY OTHER NEEDS AT THIS TIME. BED IN LOWEST POSITION, SR X1, CALL LIGHT WITHIN REACH. WILL CONTINUE TO MONITOR.
[2019-08-28 20:00] VITALS: BP 120/62
[2019-08-29 04:00] VITALS: BP 115/71
--- NOTE | 2019-08-29 06:34 | NUR ---
PT C/O PIV TO RIGHT HAND LEAKING, REMOVED, CATHETER TIP INTACT, TOLERATED WELL, NO S/S OF BLEEDING AT SITE. 20 GAUGE PIV RESITED TO LEFT UPPER ARM, X1 ATTEMPT, FLUSHES WITHOUT ISSUE, PT TOLERATED WELL. DENIES ANY OTHER NEEDS AT THIS TIME. BED IN LOWEST POSITION, SR X1, CALL LIGHT WITHIN REACH. WILL CONTINUE TO MONITOR.
[2019-08-29 06:59] LABS: BASOPHILS 0.7 % (0-2); EOSINOPHILS 2.1 % (0-7); HEMATOCRIT 39.8 % (36.0-48.0); HEMOGLOBIN 12.6 g/dL (12-16); IMMATURE GRANULOCYTES 0.3 % (0-5); MCH 30.8 pg (26.0-34.0); MCHC 31.7 g/dL (31.0-37.0); MCV 97.3 fL (80.0-100.0); MONOCYTES 7.9 % (2-11); PLATELET COUNT 298 10x3/uL (130-400); RBC 4.09 10x6/uL (4.00-5.40); WBC 7.1 10x3/uL (4.8-10.8)
[2019-08-29 07:10] LABS: ALBUMIN 2.3 g/dL (3.4-5.0); ALKALINE PHOSPHATASE 67 U/L (46-116); ALT (SGPT) 24 U/L (10-68); BILIRUBIN - TOTAL 0.76 mg/dL (0.2-1.3); CALC OSMOLALITY 284 mosm/kg (275-300); CALCIUM 8.4 mg/dL (8.5-10.1); CHLORIDE - SERUM 106 mmol/L (98-107); CREATININE - SERUM 0.6 mg/dL (0.6-1.3); GLUCOSE 118 mg/dL (74-106); PROTEIN - SERUM 5.9 g/dL (6.4-8.2); SODIUM 143 mmol/L (136-145); eGFR NON AFRICAN AMERICAN > 90 mL/min (90-120)
[2019-08-29 07:24] LABS: UREA NITROGEN 11 mg/dL (7-18)
--- NOTE | 2019-08-29 07:45 | NUR ---
UP IN CHAIR AT BEDSIDE. DENIES ANY PAIN AT PRESENT TIME AND NO REQUESTS VOICED. 02 ON VIA N/C HF AT 4 L/M. NO RESP DISTRESS NOTED. IV PATENT TO UPPER LEFT ARM WITHOUG REDNESS OR EDEMA. ASSESSMENT COMPLETED AND WILL CONTINUE POC. CALL LIGHT IN REACH AND CHAIR WHEELS LOCKED.
[2019-08-29 08:09] VITALS: BP 133/75
[2019-08-29 12:18] VITALS: BP 142/67
--- NOTE | 2019-08-29 14:48 | NUR ---
PATIENT SITTING UP TO CHAIR AT BEDSIDE WITH ATTENTION TOWARDS TELEVISION. HAVE OBSERVED PATIENT AMBULATING IN HALLWAY WITH PHYSICAL THERAPY TODAY. RESP EVEN AND UNLABORED. NO DISTRESS. CALL LIGHT WITHIN REACH.
[2019-08-29 17:44] VITALS: BP 91/53
--- NOTE | 2019-08-29 19:21 | NUR ---
AROUSES EASILY UP IN CHAIR AT THIS TIME WITH BED LOCKED AND CALL LIGHT IS WITH PT DENIES NEEDS AT THIS TIME
[2019-08-29 20:14] VITALS: BP 119/67
[2019-08-30] VITALS: BP 132/75
[2019-08-30 04:28] VITALS: BP 138/62
--- NOTE | 2019-08-30 05:14 | NUR ---
I have reviewed this patient and I concur with the Shift Assessment completed by the Licensed Practical Nurse today this shift.
[2019-08-30 05:25] LABS: BASOPHILS 0.1 % (0-2); EOSINOPHILS 0 % (0-7); HEMATOCRIT 38.4 % (36.0-48.0); HEMOGLOBIN 12.3 g/dL (12-16); IMMATURE GRANULOCYTES 0.2 % (0-5); LYMPHOCYTES 5.6 % (15-50); MCH 31.1 pg (26.0-34.0); MEAN PLATELET VOLUME 9.8 fL (7.4-10.4); MONOCYTES 1.8 % (2-11); NEUTROPHILS 92.3 % (40-80); PLATELET COUNT 314 10x3/uL (130-400); RBC 3.96 10x6/uL (4.00-5.40); RDW 16.6 % (11.5-14.5)
[2019-08-30 05:50] LABS: WBC 9.8 10x3/uL (4.8-10.8)
[2019-08-30 05:53] LABS: ALBUMIN 2.1 g/dL (3.4-5.0); ALKALINE PHOSPHATASE 63 U/L (46-116); ALT (SGPT) 23 U/L (10-68); BILIRUBIN - TOTAL 0.44 mg/dL (0.2-1.3); CALCIUM 8.6 mg/dL (8.5-10.1); CARBON DIOXIDE 32.5 mmol/L (21.0-32.0); CHLORIDE - SERUM 107 mmol/L (98-107); CREATININE - SERUM 0.5 mg/dL (0.6-1.3); PROTEIN - SERUM 6.2 g/dL (6.4-8.2); SODIUM 144 mmol/L (136-145); eGFR NON AFRICAN AMERICAN > 90 mL/min (90-120)
[2019-08-30 05:57] LABS: CALC OSMOLALITY 292 mosm/kg (275-300); GLUCOSE 185 mg/dL (74-106); UREA NITROGEN 16 mg/dL (7-18)
[2019-08-30 10:09] VITALS: BP 100/64
[2019-08-30 13:01] VITALS: BP 106/47
--- NOTE | 2019-08-30 16:18 | NUR ---
OT NOTE: PT COMPLETED MOB WITH RW REQUIRED CGA. PT EXHIBITED DECREASED ENDURANCE THIS AM. PT COMPLETED SIT TO STAND WITH SBA. PT COMPLETED FACE WASH WITH SETUP. PT STATED SHE IS NAUSEOUS. NURSING NOTIFIED. [phone] THANK YOU, FRANDY CUENCA
[2019-08-30 16:55] VITALS: BP 112/57
--- NOTE | 2019-08-30 17:28 | NUR ---
ALERT AND ORIENTED X4. SITTING UP IN CHAIR. CONSENTS FOR BRONCH SIGNED ON CHART. CONTINUE PLAN OF CARE AND SAFETY PRECAUTIONS.
--- NOTE | 2019-08-30 19:54 | NUR ---
RECEIVED UP IN CHAIR WITH EYES CLOSED. ALERT AND ORIETNED X4. UP TO B/R WITH ASSIST. 02@ 7 LITERS HF CANNULA. IV TO LEFT UPPER ARM SL.. HAS HOME CPAP AND WEARS AT HS. DENIES ANY NEEDS AT THIS TIME.
[2019-08-30 20:30] VITALS: BP 125/59
[2019-08-31] VITALS (7 sets, daily range): BP systolic 113–137; BP diastolic 58–74
[2019-08-31 07:00] LABS: BASOPHILS 0.1 % (0-2); EOSINOPHILS 0 % (0-7); HEMATOCRIT 35.7 % (36.0-48.0); HEMOGLOBIN 11.3 g/dL (12-16); IMMATURE GRANULOCYTES 0.4 % (0-5); LYMPHOCYTES 3.2 % (15-50); MCH 30.7 pg (26.0-34.0); MCHC 31.7 g/dL (31.0-37.0); MEAN PLATELET VOLUME 9.5 fL (7.4-10.4); MONOCYTES 1.8 % (2-11); NEUTROPHILS 94.5 % (40-80); PLATELET COUNT 355 10x3/uL (130-400); RBC 3.68 10x6/uL (4.00-5.40)
[2019-08-31 07:12] LABS: WBC 14.2 10x3/uL (4.8-10.8)
--- NOTE | 2019-08-31 07:32 | NUR ---
REPORT RECEIVED. WILL CONTINUE WITH POC. PT CURRENTLY LYING HIGH FOWLERS. CALL LIGHT W/I REACH. PT IS ASLEEP WITH EYES CLOSED AT THIS TIME. RR EVEN AND UNLABORED ON 2L HIGH FLOW. L.UPPER ARM PIV SALINE LOCKED. PT IS NPO FOR BRONCH THIS AM. NO S/S OF DISTRESS NOTED. WILL CTM.
[2019-08-31 07:38] LABS: ALBUMIN 2.1 g/dL (3.4-5.0); ALKALINE PHOSPHATASE 61 U/L (46-116); ALT (SGPT) 26 U/L (10-68); BILIRUBIN - TOTAL 0.37 mg/dL (0.2-1.3); CALC OSMOLALITY 296 mosm/kg (275-300); CALCIUM 8.4 mg/dL (8.5-10.1); CARBON DIOXIDE 32.3 mmol/L (21.0-32.0); CHLORIDE - SERUM 108 mmol/L (98-107); CREATININE - SERUM 0.6 mg/dL (0.6-1.3); GLUCOSE 164 mg/dL (74-106); POTASSIUM - SERUM 4.3 mmol/L (3.5-5.1); SODIUM 145 mmol/L (136-145); eGFR NON AFRICAN AMERICAN > 90 mL/min (90-120)
[2019-08-31 07:42] LABS: UREA NITROGEN 25 mg/dL (7-18)
--- NOTE | 2019-08-31 08:41 | NUR ---
AM PO MEDS HELD R/T NPO STATUS. WILL CTM.
--- NOTE | 2019-08-31 15:09 | NUR ---
PT RETURNED FROM [facility]. PT IS AAO AND CURRENTLY LYING SEMI FOWLERS. CALL LIGHT W/I REACH. VSS AND WNL. WILL CTM.
--- NOTE | 2019-08-31 15:27 | NUR ---
I have reviewed this patient and I concur with the Shift Assessment completed by the Licensed Practical Nurse today this shift.
--- NOTE | 2019-08-31 15:39 | NUR ---
Nutrition follow-up: Pt NPO for bronch today Diet: Low sodium with ground meat and honey thick liquids Pt with poor po intake due to does not like her diet; speech is working with pt on swallow. Wt: 139# Labs reviewed Will continue to encourage increased po intake. RDN will order Mighty Shake and Magic cup with lunch/dinner. RDN following.
--- NOTE | 2019-08-31 17:01 | NUR ---
OT NOTE: PT COMPLETED ADL MOB WITH RW REQUIRED CGA. PT COMPLETED BED MOB TASKS WITH SBA. PT COMPLETED FACE WASH WITH SET UP. [phone] THANK YOU, FRANDY CUENCA
--- NOTE | 2019-08-31 19:14 | NUR ---
RECEIVED UP IN BED WITH EYES OPEN AND TV ON. ALERT AND ORIENTED X4. UP WITH SBA. O2@ 4 LITERS PER HF CANNULA. IV TO LEFT UPPER ARM SL. DENIES ANY NEEDS AT THIS TIME.
[2019-09-01 01:05] VITALS: BP 120/69
[2019-09-01 05:22] LABS: BASOPHILS 0.1 % (0-2); EOSINOPHILS 0 % (0-7); HEMATOCRIT 36.7 % (36.0-48.0); HEMOGLOBIN 11.6 g/dL (12-16); IMMATURE GRANULOCYTES 0.3 % (0-5); LYMPHOCYTES 2.4 % (15-50); MCHC 31.6 g/dL (31.0-37.0); MCV 98.1 fL (80.0-100.0); MEAN PLATELET VOLUME 9.5 fL (7.4-10.4); MONOCYTES 2.3 % (2-11); NEUTROPHILS 94.9 % (40-80); PLATELET COUNT 352 10x3/uL (130-400); RBC 3.74 10x6/uL (4.00-5.40); RDW 17.1 % (11.5-14.5); WBC 16.2 10x3/uL (4.8-10.8)
[2019-09-01 06:07] LABS: ALBUMIN 2.1 g/dL (3.4-5.0); ALKALINE PHOSPHATASE 60 U/L (46-116); ALT (SGPT) 26 U/L (10-68); BILIRUBIN - TOTAL 0.35 mg/dL (0.2-1.3); CALC OSMOLALITY 295 mosm/kg (275-300); CALCIUM 8.4 mg/dL (8.5-10.1); CARBON DIOXIDE 31.5 mmol/L (21.0-32.0); CHLORIDE - SERUM 106 mmol/L (98-107); CREATININE - SERUM 0.6 mg/dL (0.6-1.3); POTASSIUM - SERUM 4.2 mmol/L (3.5-5.1); PROTEIN - SERUM 5.9 g/dL (6.4-8.2); SODIUM 143 mmol/L (136-145); UREA NITROGEN 25 mg/dL (7-18); eGFR NON AFRICAN AMERICAN > 90 mL/min (90-120)
[2019-09-01 06:10] LABS: GLUCOSE 224 mg/dL (74-106)
--- NOTE | 2019-09-01 07:50 | NUR ---
REPORT RECEIVED FROM WAREHOUSE ORDER PULLER AND PATIENT CARE ASSUMED. PATIENT LAYING IDN BED ON BACK WITH EYES CLOSED AND CIAPA IN PLACE. PT HAS EVEN RESPIRATIONS. WILL CONTINUE WITH PLAN OF CARE. SR UPX 2 BED IN LOW POSITION AND CALL LIGHT IN REACH.
[2019-09-01 10:21] VITALS: BP 149/82
[2019-09-01] MEDS ORDERED: OXYBUTYNIN CHLOR5 MG PO (13:27)
[2019-09-01] MEDS ORDERED: PREDNISONE10 MG PO (13:29)
[2019-09-01 14:09] LABS: FUNGUS STAIN Final report (())
[2019-09-01 14:52] VITALS: BP 131/74
--- NOTE | 2019-09-01 14:58 | NUR ---
OT NOTE: PT PERFORMED WELL TODAY; BED MOB WITH CGA; SIT TO STAND WITH CGA; AMB TO BATHROOM WITH 3W WALKER WITH CGA AND 02; TOILETING WITH MIN/CGA; UPPER BODY ADLS WITH SET UP FROM CHAIR LEVEL. AMB IN ROOM AND OUTSIDE OF ROOM FOR STRENGTH AND ENDURANCE TRAINING WITH 02, WALKER, GAIT BELT, AND MIN ASSIST. SOB WHEN RETURNED TO ROOM. MONET WASSERMAN, OTR/L [phone]
--- NOTE | 2019-09-01 15:34 | NUR ---
PATIENT SITTING UP IN BS CHAIR ALERT AND ORIENTED X 4. PATIENT IS STABLE AND VSS. PATIENT DENIES ANY NEEDS OR PAIN. ORDERS RECEIVED FOR DC TO REHAB. AWAITNING ROOM ASSIGNMENT. WILL CONTINUE TO MONITOR. SR UPX 2 BED IN LOW POSITION AND CALL LIGHT IN REACH.
[2019-09-01 16:08] LABS: ACID FAST SMEAR Negative (()); AFB SPECIMEN PROCESSING Concentration (())
--- NOTE | 2019-09-01 16:32 | MORECARE ---
CASE MANAGEMENT DISCHARGE SUMMARY PATIENT: LAZARO MCKENZIE UNIT: [id number] ADM DATE: 08/13/19 AGE: 89 : 30 SEX: F ROOM/BED: D.5558 AUTHOR: CARROL,DOC PHYSICIAN: REFERRING PHYSICIAN: EMERY BELLO MD DATE OF SERVICE: 09/01/19 Discharge Plan Patient Name: LAZARO MCKENZIE [facility] [facility] 1930 Planned Disposition: Inpatient Rehab Anticipated Discharge Date: 09/01/19 Discharge Date: Expected LOS: 19 Initial Reviewer: [email or web address] Initial Review Date: 08/24/2019 Generated: 09/01/19 5:31 pm Comments DCP- Discharge Planning Updated by [email or web address]: Junito Velez on 09/01/19 3:[address] Patient Name: LAZARO MCKENZIE Encounter No: [id number] : 1930 Primary Insurance: MEDICARE A & B Anticipated DC Date: 09-01-2019 Planned Disposition: Inpatient Rehab External Planned Provider: [facility] DCP follow-up note: CM RECEIVED DISCHARGE ORDERS. CM SPOKE TO [facility] OF INPATIENT REHAB, THEY PLAN TO ACCEPT PT TODAY FOR REHAB. PT NOTIFIED, IN AGREEMENT WITH DISCHARGE TO INPATIENT REHAB. IMPORTANT MESSAGE FROM MEDICARE PROVIDED AND EXPLAINED. [facility] TO CONTACT MED 2 NURSE WITH ROOM NUMBER WHEN READY TO ACCEPT PT AND NURSE REPORT. DONAVAN Valdes DCP- Discharge Planning Updated by [id number]: Junito Velez on 08/24/19 3:[address] Patient Name: LAZARO MCKENZIE Admission Status: ER Accout number: [id number] Admission Date: 08-13-2019 : 1930 Admission Diagnosis: Attending: EMERY BELLO Current LOS: 11 Anticipated DC Date: 08-24-2019 Planned Disposition: Inpatient Rehab Primary Insurance: MEDICARE A & B Discharge Planning Comments: CM RECEIVED ORDER FOR INPATIENT REHAB PRESCREENING. CM MET WITH PT IN ROOM TO DISCUSS DISCHARGE PLANNING AND NEEDS. PT REPORTS LIVING AT [facility] INDEPENDENTLY AND ALONE; PT REPORTS HAVING EMERGENCY PENDENT AND PULL CORDS AT THE FACILITY IF NEEDED. PT HAS NEBULIZER AND THREE WHEELED WALKER FROM [facility]. PT HAS NO OUTSIDE SERVICES ASSISTING IN THE APARTMENT BUT HAS HELP AVAILABLE IF NEEDED. CM DISCUSSED AVAILABILITY OF HOME HEALTH, REHAB SERVICES AND MEDICAL EQUIPMENT. PT KNOWS SHE NEEDS REHAB WITH PLAN TO GO BACK TO [facility] AFTER REHAB. CM DISCUSSED REHAB OPTIONS, LOCATIONS AND PROVIDERS. PT WOULD LIKE TO STAY AT [place] FOR REHAB. CHOICE SIGNED. IMPORTANT MESSAGE FROM MEDICARE PROVIDED AND EXPLAINED. CM MET WITH CARE TEAM AT INTERDISCIPLINARY TEAM MEETING, DORENE JOSE IS OK WITH DISCHARGE TO REHAB TODAY IF OK WITH PULMONARY. J[facility] OF INPATIENT REHAB REPORTS THEY CAN ACCEPT TODAY IF STABLE FOR DISCHARGE TO REHAB. PT PLANS TO DISCHARGE TO INPATIENT REHAB AT [place]. INPATIENT REHAB AT [place] PLANS TO ACCEPT; NOTIFY REHAB WHEN DISCHARGE ORDER IS RECEIVED FOR FUTHER INSTRUCTIONS FOR ADMISSION TO INPATIENT REHAB. Manager Assembly: Junito Velez DCPIA - Discharge Planning Initial Assessment Updated by [id number]: Junito Velez on 08/24/19 4:33 pm * Is the patient Alert and Oriented? Yes * How many steps to enter\exit or inside your home? NONE * PCP DR. CELAYA * Pharmacy [facility] * Preadmission Environment Assisted Living * Facility Name [facility] * ADLs Independent * Equipment Nebulizer Rolling Walker * Other Equipment THREE WHEELED WALKER [facility] - PROVIDER * List name and contact numbers for known caregivers / representatives who currently or will assist patient after discharge: LALITO LUCYFLORY, * Verbal permission to speak to the caregivers and representatives has been obtained from the patient. Yes * Community resources currently utilized None * Please name any agencies selected above. NONE * Additional services required to return to the preadmission environment? Yes * Can the patient safely return to the preadmission environment? Yes * Has this patient been hospitalized within the prior 30 days at any hospital? No Coverage Notice Reviewer: [id number] Brian Velez Notice Issued Date-Time: 08/24/2019 8:50 Notice Type: IM Discharge Notice Notice Delivered To: Patient Relationship to Patient: [employer] Superintendent Name: Delivery Method: HAND - Hand Delivered [place] Days: Prior Verbal Notification: Recipient Understood Notice: Yes Recipient Signature: Yes Med Rec Note Co-signed by Attending: Coverage Notice Comment: Reviewer: [email or web address] Velez Notice Issued Date-Time: 08/24/2019 8:50 Notice Type: Patient Choice Letter Notice Delivered To: Patient Relationship to Patient: [employer] Superintendent Name: Delivery Method: HAND - Hand Delivered [place] Days: Prior Verbal Notification: Recipient Understood Notice: Yes Recipient Signature: Yes Med Rec Note Co-signed by Attending: Coverage Notice Comment: [facility] Reviewer: [email or web address] Brian Velez Notice Issued Date-Time: 09/01/2019 13:30 Notice Type: IM Discharge Notice Notice Delivered To: Patient Relationship to Patient: [employer] Superintendent Name: Delivery Method: HAND - Hand Delivered [place] Days: Prior Verbal Notification: Recipient Understood Notice: Yes Recipient Signature: Yes Med Rec Note Co-signed by Attending: Coverage Notice Comment: Last DP export: 08/24/19 3:40 pm Patient Name: LAZARO MCKENZIE Page [phone] at 1632 All edits/amendments must be made on the electronic document DICTATION DATE: 09/01/19 163 HAND SHOE CUTTER: JARROD 09/01/19 1631 RPT#: [id number] DC DATE: STATUS: ADM IN [facility] [address] [place] [address] END OF REPORT
--- NOTE | 2019-09-01 16:53 | NUR ---
PATIENT IS STABLE AND VSS. PATIENT IS DCD TO INPATIENT REHAB. CALLLED REPORT TO LUÍS POZO. PATIENT DENIES ANY NEEDS OR PAIN. IV DCD WITHOUT DIFFICULTY WITH ENTIRE CATHETER INTACT. PRESSURE DRSG APPLIED. WRITTEN AND VERBAL INSTRUCTIOJNS GIVEN TO PATIENT. PATIENT VERBALIZED UNDERSTANDING AND SIGNED PAPERS. PATIENT TO REHAB VIA WC ACCOMPANIED BY HOSPITAL PERSONNEL.
--- NOTE | 2019-09-01 17:09 | NUR ---
CALLED REPORT TO NOHELIA STALEY IN REHAB.
== END 2019-09-01 17:10 | DRG 177 ==
LOC: D.ER 10:03 → D.M2 12:44
PROVIDERS: Family Medicine; Internal Medicine Pulmonary Disease; ADMIT Internal Medicine Nephrology; ATTEND Internal Medicine Nephrology
PROC: 0B9G8ZX Drainage of Left Upper Lung Lobe, Via Natural or Artificial Opening Endoscopic, Diagnostic (ICD-10-PCS; principal; 2019-08-31 14:40)
DX: J69.0 Pneumonitis due to inhalation of food and vomit (principal); J96.01 Acute respiratory failure with hypoxia; J47.0 Bronchiectasis with acute lower respiratory infection; N17.9 Acute kidney failure, unspecified; I48.20 Chronic atrial fibrillation, unspecified; J47.1 Bronchiectasis with (acute) exacerbation; I11.0 Hypertensive heart disease with heart failure; I50.9 Heart failure, unspecified; F32.9 Major depressive disorder, single episode, unspecified; K21.9 Gastro-esophageal reflux disease without esophagitis; I25.10 Atherosclerotic heart disease of native coronary artery without angina pectoris; G47.33 Obstructive sleep apnea (adult) (pediatric); Z79.01 Long term (current) use of anticoagulants; R91.1 Solitary pulmonary nodule

== ENCOUNTER 2019-09-01 16:07 | Inpatient (IN) | payer MEDICARE, BC ==
[~2019-09-01] VITALS: Ht 162.6 cm; Wt 59.0 kg
--- NOTE | ~2019-09-01 | RHP ---
PATIENT: LAZARO MCKENZIE MEDICAL RECORD: [id number] ACCOUNT: [id number] LOCATION:[facility] : [birth year] ADMISSION DATE: 09/01/19 REHABILITATION HISTORY AND PHYSICAL EXAMINATION POST ADMISSION PHYSICIAN EXAMINATION ADMITTING DIAGNOSIS: Acute exacerbation of chronic obstructive pulmonary disease. HISTORY OF PRESENT ILLNESS: The patient is an 89-year-old female patient who was in the ED on 08/13/2019 with complaint of shortness of breath and symptoms for about a week. She says she has been treated for pneumonia in the past and prednisone without much improvement. She was sent to the Emergency Room by her PCP, Dr. Dhillon for further evaluation. She was found to be weak with a little bit hypoxic even on 2 liters of O2. She had coarse breath sounds. She obviously need to be placed in the hospital for further evaluation. She did have chronic AFib and she is on Cardizem, digoxin, and Pradaxa for this long-term. The patient was placed in the hospital. She was placed on appropriate medications. She was placed on Brovana, Pulmicort, and DuoNeb updrafts. She was continued on antibiotics, but changed to meropenem. She was placed on incentive spirometry. Bedside swallow eval showed a constant cough throughout the exam and recommended a modified barium swallow. This was done and it showed moderate pharyngeal dysphagia and recommended mechanical soft ground meat and gravy and thickened liquids. Speech therapy will need to follow throughout this. The patient feels somewhat better now. She had a bronchoscopy done and her O2 levels have been better. As far as her diet, she has been tolerating it well, but has had poor intake. Previously, she was living in an apartment in assisted living. She was moderately independent with a walker in her apartment with ADLs and mobility. Currently, she is mod to max assist for ADLs and mobility. She tires easily, requires rest, breaks. She has got limited range of motion in upper extremities, making it difficult to handle a walker. She would like to return home at her prior level of functioning or better. COMORBIDITIES: Include moderate oropharyngeal dysphagia, acute respiratory failure, aspiration pneumonia, COPD, pulmonary nodules, long-term anticoagulation secondary to chronic AFib, asthma, hypertension, coronary artery disease, status post bronchoscopy. He has got a history of gastroesophageal reflux disease, acute on chronic cough, leukocytosis, debility, nausea, and vomiting. PAST MEDICAL HISTORY: Significant for CHF, MO, coronary artery disease, asthma, pneumonia, acid reflux, hip dysplasia, menopause, depression, neuropathy, osteoarthritis, vitamin D deficiency, sleep apnea, bronchiectasis. PAST SURGICAL HISTORY: Includes hip, back, foot, extremities. She has had coronary artery bypass grafting, rhinoplasty, skin graft, angioplasty, and tonsillectomy and adenoidectomy. ALLERGIES: ZHENG INHIBITORS, SULFA, AND QUINOLONES. CURRENT MEDICATIONS: She is on a tapering dose of prednisone at this time. She is on furosemide 40 mg daily. She is on Lexapro 20 mg daily, digoxin 0.25 mg daily, vitamin D 4000 units daily, Lipitor 40 mg daily, aspirin 81 mg daily, promethazine with codeine 5 cc every 6 hours p.r.n., Ditropan 5 mg b.i.d., HISTORY AND PHYSICAL [id number] LAZARO MCKENZIE Singulair 10 mg at bedtime, Mucinex 600 mg b.i.d., Cardizem 180 mg b.i.d., Pradaxa 150 mg b.i.d., Tessalon Perles 200 t.i.d., Ventolin updrafts as needed. HABITS: No alcohol or tobacco use. FAMILY HISTORY: Noncontributory. SOCIAL HISTORY: The patient hopes to return back to her assisted living and get back to her prior level of functioning. REVIEW OF SYSTEMS: GENERAL: Does complain of weakness and fatigue. HEENT: Does complain of cold, cough, and congestion. CARDIOVASCULAR: Denies any chest pain. PHYSICAL EXAMINATION: VITAL SIGNS: Stable, afebrile. GENERAL: An elderly female, in no acute distress, alert upon exam. HEENT: Normocephalic and atraumatic. Mucosa moist. NECK: Supple. No lymphadenopathy. LUNGS: Clear in upper gardner with decreased breath sounds in the bases. She does have coarse breath sounds. CARDIOVASCULAR: Irregular rate and rhythm. ABDOMEN: Soft, benign, and nondistended. Positive bowel sounds times 4. EXTREMITIES: No clubbing, cyanosis or edema. NEUROLOGIC: She has got 3/5 strength in her proximal muscles of her thighs and 3/5 in her upper extremities. LABORATORY DATA: Her white count 11.3, her H&H are 11 and 36, and platelet count is 332. Her sodium is 143, potassium 3.8, BUN and creatinine of 20 and 0.4 and blood sugar is noted to be 157. ASSESSMENT: This is an 89-year-old female patient admitted to rehab with a working diagnosis of debility secondary to chronic obstructive pulmonary disease. The patient has potential to make improvement. We instituted the following multidisciplinary therapies including, but not limited to physical, occupational, respiratory, speech, nutritional services, prosthetics and orthotics. Given her complex medical condition and risk for more complications, rehabilitation services cannot be provided at a low level of care such as skilled nurse facility. PLAN: 1. Admit to [facility] for intensive inpatient therapy to include the following disciplines: A. Physical therapy to improve gait, all transfer skills and bed mobility to a modified independent level. B. Occupational therapy to a modified independent level. C. Case management to assist with discharge planning and placement options. D. Nutrition to assist with nutritional needs. E. Rehabilitation nursing to assist in monitoring the patient's underlying medical conditions and to assist with any type of bowel or bladder management. 2. The patient's current medication and medical care will be continued. 3. The patient will be placed on standard fall precautions. 4. The patient's estimated length of stay is approximately 7-10 days. 5. We will go ahead and repeat her vitamin levels and I will see her again in HISTORY AND PHYSICAL [id number] LAZARO MCKENZIE a.mShannan TRANSINT:[id number] Voice Confirmation ID: [id number] DOCUMENT ID: [id number] 09/08/2019 Edited for aileen ALEXANDRA. IBRAHIMA notes whether there has been none or any medical/functional change since admission: - No change since preadmission screen. IBRAHIMA attests patient continues to be appropriate for IRF: - Continues to be appropriate. JESSICA JOHNSTON MD CC: [id number] DICTATION DATE: 09/02/1942 PRODUCTION SUPPORT DEVELOPER: 09/02/1931 ADM IN [facility] [address] [place] [address]
[~2019-09-01 16:07] MED LIST changes: +OXYBUTYNIN CHLOR5 MG PO; +PREDNISONE10 MG PO
--- NOTE | 2019-09-01 18:20 | NUR ---
RECIEVED PER WC TO ROOM 1112A.ORIENTED TO ROOM.CL IN REACH.
--- NOTE | 2019-09-01 19:20 | NUR ---
GREETED PATIENT AND INTRODUCED MYSELF HER NURSE. PATIENT IS LAYING IN BED RESTING AT THIS TIME. RESPIRATIONS EVEN. NO S/S OF DISTRESSS. O2 AT 4L HIGH FLOW NC. AOX4. DENIES ANY FURTHER NEEDS AT THIS TIME. CALL LIGHT IN REACH.
[2019-09-01 19:30] VITALS: BP 163/97
[2019-09-01 23:12] VITALS: BP 107/62; BMI 22.3
--- NOTE | 2019-09-02 02:05 | NUR ---
PT. RESTING QUIETLY WITH EYES CLOSED. RESPIRATIONS EVEN. NO S/S OF DISTRESS. CPAP IN USE. CALL LIGHT IN REACH. SR UP X 2. BED IN LOWEST POSITION.
[2019-09-02 06:42] LABS: CALCIUM 8.1 mg/dL (8.5-10.1); CARBON DIOXIDE 34.1 mmol/L (21.0-32.0); CHLORIDE - SERUM 107 mmol/L (98-107); POTASSIUM - SERUM 3.8 mmol/L (3.5-5.1); SODIUM 143 mmol/L (136-145); UREA NITROGEN 20 mg/dL (7-18)
[2019-09-02 06:43] LABS: CALC OSMOLALITY 290 mosm/kg (275-300); CREATININE - SERUM 0.4 mg/dL (0.6-1.3); GLUCOSE 157 mg/dL (74-106); eGFR NON AFRICAN AMERICAN > 90 mL/min (90-120)
[2019-09-02 06:46] LABS: BASOPHILS 0 % (0-2); EOSINOPHILS 0 % (0-7); HEMATOCRIT 36.4 % (36.0-48.0); HEMOGLOBIN 11.3 g/dL (12-16); IMMATURE GRANULOCYTES 0.3 % (0-5); MCH 30.5 pg (26.0-34.0); MCV 98.4 fL (80.0-100.0); MEAN PLATELET VOLUME 9.5 fL (7.4-10.4); MONOCYTES 6.3 % (2-11); NEUTROPHILS 88.4 % (40-80); PLATELET COUNT 332 10x3/uL (130-400); RDW 16.9 % (11.5-14.5)
[2019-09-02 07:01] LABS: WBC 11.3 10x3/uL (4.8-10.8)
--- NOTE | 2019-09-02 07:30 | NUR ---
A/A/OX4. REQUESTED HELP UP TO BATHROOM AND PT DID WELL GOING TO AMBULATING WITH HER WALKER. DENIES ANY PAIN OR DISCOMFORT AT THIS TIME AND NO OTHER REQUESTS VOICED. ASSESSMENT COMPLETED AND WILL CONTINUE POC. BED ALARM ON AND OPERATING PROPERLY. CALL LIGHT IN REACH.
[2019-09-02 08:09] VITALS: BP 152/89
--- NOTE | 2019-09-02 12:00 | NUR ---
I have reviewed this patient and I concur with the Shift Assessment completed by the Licensed Practical Nurse today this shift.
[2019-09-02 14:06] VITALS: Ht 162.6 cm; Wt 59.0 kg
--- NOTE | 2019-09-02 16:04 | NUR ---
Nutrition Note: Received call from RN that patient was complaining about her diet order and stating that she was not going to eat. RN requested that come speak with patient again to get more food preferences from her. Patient was pleasant and gave a more indepth list of food preferences. Explained to patient that her diet was restricted due to her chewing and swallowing issues as well at a sodium and cholesterol restriction. Patient states that she understood. I encouraged her to write in food request on her menu and that the kitchen staff would try to accomodate her as much as possible. Ignacia Mercado, MS, RD, LD
--- NOTE | 2019-09-02 18:34 | NUR ---
SITTING IN BEDSIDE CHAIR WATCHING TV. DENIES ANY NEEDS. 02 REMAINS ON AT 4L/M HF NC. NO SOB NOTED OR VOICED. STATES SHE IS FEELING PRETTY GOOD THIS AFTERNOON.
--- NOTE | 2019-09-02 18:50 | NUR ---
GREETED PATIENT AND INTRODUCED MYSELF HER NURSE. PATIENT IS SITTING IN RECLINER AT THIS TIME. O2 AT 4L HIGH FLOW NC IN USE. RESPIRATIONS EVEN. NO S/S OF DISTRESS. CALL LIGHT IN REACH.
--- NOTE | 2019-09-02 18:50 | NUR ---
GREETED PATIENT AND INTRODUCED MYSELF HER NURSE. PATIENT IS SITTING IN RECLINCER AT THIS TIME. O2 AT 4L HIGH FLOW NC IN USE. RESPIRATIONS EVEN. NO S/S OF DISTRESS. CALL LIGHT IN REACH.
[2019-09-02 19:30] VITALS: BP 113/57
--- NOTE | 2019-09-02 21:30 | NUR ---
ASSISTED PATIENT TO CHANGE INTO BEDTIME CLOTHING. POSITIONED IN BED FOR COMFORT, CPAP CHECKED AND PUT ON, CALL LIGHT IN REACH. DENIES ANY FURTHER NEEDS AT THIS TIME.
--- NOTE | 2019-09-03 01:33 | NUR ---
PT. RESTING QUIETLY WITH EYES CLOSED. RESPIRATIONS EVEN. NO S/S OF DISTRESS. CPAP IN USE. CALL LIGHT IN REACH.
--- NOTE | 2019-09-03 05:00 | NUR ---
ASSISTED PT. TO BATHROOM USING WALKER. BACK TO RECLINER TO SIT. O2 AT 4L IN USE VIA NC. RESPIRATIONS EVEN. NO S/S OF DISTRESS. CALL LIGHT IN REACH.
[2019-09-03 07:14] LABS: BASOPHILS 0.2 % (0-2); EOSINOPHILS 0.3 % (0-7); HEMATOCRIT 39.7 % (36.0-48.0); HEMOGLOBIN 12.3 g/dL (12-16); IMMATURE GRANULOCYTES 0.4 % (0-5); LYMPHOCYTES 9.6 % (15-50); MEAN PLATELET VOLUME 9.9 fL (7.4-10.4); MONOCYTES 7.7 % (2-11); NEUTROPHILS 81.8 % (40-80); PLATELET COUNT 376 10x3/uL (130-400); RBC 3.97 10x6/uL (4.00-5.40); RDW 16.9 % (11.5-14.5); WBC 11.5 10x3/uL (4.8-10.8)
[2019-09-03 07:38] LABS: CALC OSMOLALITY 281 mosm/kg (275-300); CALCIUM 7.9 mg/dL (8.5-10.1); CARBON DIOXIDE 33.6 mmol/L (21.0-32.0); CHLORIDE - SERUM 105 mmol/L (98-107); CREATININE - SERUM 0.5 mg/dL (0.6-1.3); SODIUM 141 mmol/L (136-145); UREA NITROGEN 17 mg/dL (7-18); eGFR NON AFRICAN AMERICAN > 90 mL/min (90-120)
[2019-09-03 07:39] LABS: GLUCOSE 86 mg/dL (74-106)
[2019-09-03 07:40] LABS: POTASSIUM - SERUM 3.7 mmol/L (3.5-5.1)
[2019-09-03 08:21] VITALS: BP 148/67
--- NOTE | 2019-09-03 12:29 | NUR ---
PATIENT ADMITTED TO REHAB FROM ACUTE FLOOR. PATIENT PCP IS DR. CELAYA. PATIENT HAS A NEBULIZER AND A WALKER FROM [facility]. PATIENT RESIDES AT [facility]. DISCHARGE PLANS ARE FOR PATIENT TO RETURN THERE. WILL CONTINUE TO FOLLOW WITH PATIENT.
--- NOTE | 2019-09-03 12:42 | NUR ---
CALORIE COUNT COMPLETED SEP 01 KCALPRO(g) LUNCH: [id number] DINNER:[id number] TOTAL: [id number] , SEP 02KCALPRO(g) BREAKFAST:2302g LUNCH: [id number] DINNER:[id number] TOTAL: [id number] FRIDAY, SEP 03KCALPRO(g) BREAKFAST: 125 14g Patient eating well. On Sep 02 patient exceeded >100% estimated kcal and protein needs. Clinical Dietitian to continue following patient DHS.
--- NOTE | 2019-09-03 16:53 | NUR ---
PT RESTING IN BED WITH EYES OPEN CALL LIGHT IN REACH WILL MONITER
--- NOTE | 2019-09-03 16:59 | NUR ---
PT RESTING IN BED WITH EYES OPEN CALL LIGHT IN REACH WILL MONITER
[2019-09-03 19:00] VITALS: BP 105/55
--- NOTE | 2019-09-03 19:00 | NUR ---
PT RECEIVED BEDSIDE REPORT COMPLETE. PT LYING IN BED WATCHING TV. DENIES ANY NEEDS OR PAIN. A & O X4. VS STABLE. SHIFT ASSESSMENT COMPLETE. NO SIGNS OF ACUTE DISTRESS NOTED. CONTINUES ON 4L VIA HF. CL IN REACH. FALL PRECAUTIONS IN PLACE. WILL CONTINUE TO MONITOR
--- NOTE | 2019-09-04 01:41 | NUR ---
PT LYING IN BED EYES CLOSED RESTING COMFORTABLY. CPAP ON. NO SIGNS OF ACUTE DISTRESS NOTED. CL IN REACH.
--- NOTE | 2019-09-04 04:53 | NUR ---
PT LYING IN BED EYES CLOSED RESTING QUIETLY. RR EVEN AND UNLABORED. CL IN REACH
--- NOTE | 2019-09-04 08:00 | NUR ---
PT RESTING IN BED WITH EYES OPEN CALL LIGHT IN REACH WILL MONITER
[2019-09-04 08:23] VITALS: BP 123/63
[2019-09-04 19:00] VITALS: BP 119/50
--- NOTE | 2019-09-04 19:00 | NUR ---
PT RECEIVED BEDSIDE REPORT COMPLETE. PT SITTING UP IN CHAIR READING MAGAZINE. DENIES ANY NEEDS OR PAIN. RR EVEN AND UNLABORED. CONTINUES ON 4L VIA HF NC. VS STABLE. SHIFT ASSESSMENT COMPLETE. CL IN REACH. FALL PRECAUTIONS IN PLACE. WILL CONTINUE TO MONITOR
--- NOTE | 2019-09-04 23:26 | NUR ---
PT LYING IN BED EYES CLOSED RESTING COMFORTABLY. CPAP ON. RR EVEN AND UNLABORED. CL IN REACH
--- NOTE | 2019-09-05 02:38 | NUR ---
PT LYING IN BED EYES CLOSED RESTING COMFORTABLY. RR EVEN AND UNLABORED. CL IN REACH
--- NOTE | 2019-09-05 05:20 | NUR ---
ASSISTED PT TO RESTROOM. PT NOW SITTING UP IN RECLINER. CONTINUES ON 4L VIA HF NC. DENIES ANY OTHER NEEDS OR PAIN. CL IN REACH
[2019-09-05 07:38] VITALS: BP 126/52
--- NOTE | 2019-09-05 09:29 | NUR ---
PATIENT SITTING UP IN RECLINER AT BEDSIDE. ALERT/ORIENT. CALL LIGHT WITHIN REACH. VOICES NO NEEDS AT THIS TIME. WILL CONTINUE WITH PLAN OF CARE
--- NOTE | 2019-09-05 14:51 | NUR ---
PATIENT WALKED TO BATHROOM. USING OWN WHEELED WALKER. STAND BY ASST
[2019-09-05 18:26] VITALS: BP 111/69
--- NOTE | 2019-09-05 18:50 | NUR ---
BEDSIDE REPORT COMPLETE. PT RECEIVED SITTING UP IN RECLINER WATCHING TV. DENIES ANY NEEDS OR PAIN. NO SIGNS OF ACUTE DISTRESS NOTED. CONTINUES ON 4L VIA HF NC. VS STABLE. SHIFT ASSESSMENT COMPLETE. CL IN REACH. FALL PRECAUTIONS IN PLACE. WILL CONTINUE TO MONITOR
--- NOTE | 2019-09-05 23:14 | NUR ---
PT LYING IN BED EYES CLOSED RESTING. RR EVEN AND UNLABORED. CPAP ON. CL IN REACH
--- NOTE | 2019-09-06 02:34 | NUR ---
PT LYING IN BED EYES CLOSED RESTING COMFORTABLY. CL IN REACH
--- NOTE | 2019-09-06 05:56 | NUR ---
PT SITTING UP IN BED WATCHING MORNING NEWS. DENIES ANY NEEDS OR PAIN. CONTINUES ON 4L VIA HF NC. CL IN REACH
[2019-09-06 06:00] LABS: BASOPHILS 0 % (0-2); EOSINOPHILS 1.3 % (0-7); HEMATOCRIT 38.1 % (36.0-48.0); IMMATURE GRANULOCYTES 0.9 % (0-5); LYMPHOCYTES 9.8 % (15-50); MCH 30.7 pg (26.0-34.0); MCHC 31.5 g/dL (31.0-37.0); MCV 97.4 fL (80.0-100.0); MEAN PLATELET VOLUME 9.7 fL (7.4-10.4); MONOCYTES 9.5 % (2-11); NEUTROPHILS 78.5 % (40-80); PLATELET COUNT 414 10x3/uL (130-400); RBC 3.91 10x6/uL (4.00-5.40); RDW 16.5 % (11.5-14.5); WBC 10.1 10x3/uL (4.8-10.8)
[2019-09-06 06:12] LABS: CALC OSMOLALITY 288 mosm/kg (275-300); CALCIUM 8.1 mg/dL (8.5-10.1); CARBON DIOXIDE 36.2 mmol/L (21.0-32.0); CHLORIDE - SERUM 106 mmol/L (98-107); CREATININE - SERUM 0.6 mg/dL (0.6-1.3); GLUCOSE 110 mg/dL (74-106); SODIUM 144 mmol/L (136-145); UREA NITROGEN 15 mg/dL (7-18); eGFR NON AFRICAN AMERICAN > 90 mL/min (90-120)
[2019-09-06 07:58] VITALS: BP 141/82
--- NOTE | 2019-09-06 08:00 | NUR ---
PATIENT IS ALERT/ORIENT. SITTING UP IN A CHAIR AT BEDSIDE TO EAT BREAKFAST. CALL LIGHT WITHIN REACH. VOICES NO NEEDS AT THIS TIME. WILL CONTINUE WITH PLAN OF CARE
--- NOTE | 2019-09-06 10:26 | NUR ---
PATIENT IN REHAB ROOM. WORKING WITH PHYSICAL THERAPIST. DENIES ANY PAIN/DISC AT THIS TIME.
--- NOTE | 2019-09-06 13:53 | NUR ---
OCCUPATIONAL THERAPY WORKING WITH PATIENT. HELPING PATIENT WITH A SHOWER
--- NOTE | 2019-09-06 14:56 | NUR ---
Nutrition Follow-up: Diet: [facility] Soft Ground Meats with gravy, regular liquids + Ensure and chocolate pudding with meals PO intake: 75-100% x last 9 meals. Reports that her appetite is a little better. States that she doesn't like the Ensure so she "canceled it." She wants more sugar with her coffee. Last BM: 09/06/19. WT: 130# (09/02/19) Meds noted: prednisone, lasix. Labs noted: Glu 110, K 3.0 (replaced per MD) Recommend continue PO diet per HOISTING ENGINEER PILE DRIVING. No nutrient restrictions. Discontinued Ensure per patient request. Pt is eating very well, calorie count is no longer being recorded. Will continue to monitor PO intake and wt trend. RD following.
--- NOTE | 2019-09-06 19:20 | NUR ---
PATIENT RECEIVED SITTING UP IN RECLINER. PATIENT VS & ASSESSMENT DONE. C/O COUGHING. HEAT TURNED DOWN. WASHCLOTH TO CHEST & FOREHEAD TO COOL HER DOWN. CALL LIGHT WITHIN REACH. RESPIRATORY TO GIVE BREATHING TREATMENT AT THIS TIME. WILL CONTINUE TO MONITOR.
[2019-09-06 19:54] VITALS: BP 119/62
--- NOTE | 2019-09-07 02:50 | NUR ---
PATIENT EYES CLOSED. RESPIRATIONS 18 & EVEN. BED LOW. ALARM ON. CALL LIGHT WITHIN REACH. WILL CONTINUE TO MONITOR.
--- NOTE | 2019-09-07 03:10 | NUR ---
PT CALLED C/O SOB, CHECKED PULSE OX 80% ON 3.5L INCREASED O2 4L SAT 84%. PLACED ON 5L SAT 92%, PT STILL SOB AND COUGHING. WHEEZES ASCULTATED IN ALL LOBES CALLED RT OMAR TO GIVE PRN ALBUTEROL. WILL STAY WITH PT UNTIL RT ARRIVES
--- NOTE | 2019-09-07 03:30 | NUR ---
OMAR RT ADMINISTERED PRN ALBUTEROL PT WAS STATING IN LOW 80'S. PT IS NOW ON 5L VIA NC. AND 4L VIA CPAP. PLACED PT ON HOME CPAP AND IS NOW 95% AND RESTING. WILL CONTINUE TO MONITOR PT
--- NOTE | 2019-09-07 04:27 | NUR ---
I have reviewed this patient and I concur with the Shift Assessment completed by the Licensed Practical Nurse today this shift.
--- NOTE | 2019-09-07 07:41 | NUR ---
PT RESTING IN BED WITH EYES OPEN CALL LIGHT IN REACH WILL MONITER
[2019-09-07 08:43] VITALS: BP 141/72
--- NOTE | 2019-09-07 19:30 | NUR ---
GREETED PATIENT AND INTRODUCED MYSELF HER NURSE. PATIENT IS CURRENTLY SITTING IN RECLINER WATCHING TV. O2 AT 4L IN USE HIGH FLOW NC. RESPIRATIONS EVEN. NO S/S OF DISTRESS. STATES NO EVIDENCE OF PAIN AT THIS TIME. CALL LIGHT IN REACH.
[2019-09-07 21:15] VITALS: BP 112/63
--- NOTE | 2019-09-08 08:19 | NUR ---
ALERT AND ORIENTED. NO C/O PAIN. EATING BREAKFAST. CL IN REACH.
[2019-09-08 08:31] VITALS: BP 181/93
[2019-09-08] MEDS ORDERED: PREDNISONE10 MG PO (08:46)
[2019-09-08 09:24] LABS: CALC OSMOLALITY 276 mosm/kg (275-300); CALCIUM 8.3 mg/dL (8.5-10.1); CARBON DIOXIDE 34.8 mmol/L (21.0-32.0); CHLORIDE - SERUM 98 mmol/L (98-107); CREATININE - SERUM 0.6 mg/dL (0.6-1.3); GLUCOSE 143 mg/dL (74-106); POTASSIUM - SERUM 4.1 mmol/L (3.5-5.1); SODIUM 137 mmol/L (136-145); UREA NITROGEN 16 mg/dL (7-18); eGFR NON AFRICAN AMERICAN > 90 mL/min (90-120)
[2019-09-08 09:32] LABS: BASOPHILS 0.1 % (0-2); EOSINOPHILS 0.1 % (0-7); HEMATOCRIT 38.5 % (36.0-48.0); HEMOGLOBIN 12.6 g/dL (12-16); IMMATURE GRANULOCYTES 0.4 % (0-5); LYMPHOCYTES 2.7 % (15-50); MCH 31.3 pg (26.0-34.0); MCHC 32.7 g/dL (31.0-37.0); MCV 95.8 fL (80.0-100.0); MEAN PLATELET VOLUME 9.5 fL (7.4-10.4); MONOCYTES 5.1 % (2-11); NEUTROPHILS 91.6 % (40-80); PLATELET COUNT 344 10x3/uL (130-400); RBC 4.02 10x6/uL (4.00-5.40); RDW 16.4 % (11.5-14.5); WBC 14.1 10x3/uL (4.8-10.8)
--- NOTE | 2019-09-08 12:31 | NUR ---
NO CHANGE IN ASSESSMENT. SITTING ON SIDE OF BED. LUNCH IN ROOM. NO CHANGE IN ASSESSMENT.
--- NOTE | 2019-09-08 13:11 | NUR ---
PATIENT DISCHARGING HOME TODAY. [facility] WILL PROVIDE THERAPY AT HOME. PATIENT DECLINES COMPARE DATA SHE HAS USED [facility] PRIOR TO THIS HOSPITAL VISIT. PATIENT CHOICE FORM AND IM[facility] FORMS SIGNED, COPY FILED IN CHART AND ONE GIVEN TO PATIENT. [facility] [place] WILL DELIVER O2 TO PATIENT. DISCHARGE INSTRUCTIONS FAXED TO PCP, HOME HEALTH AND REVIEWED WITH PATIENTL.
--- NOTE | 2019-09-08 13:18 | NUR ---
PATIENT IN FLOOR. STAFF MEMBER WALKING BY ROOM AND SAW PATIENT UP IN ROOM SHE FELL ON HER BOTTOM IN ROOM. ASSISTED BACK TO BED BY TWO STAFF MEMBERS. PATIENT IS NOT COMPLAINING OF PAIN AND DOES NOT WANT A PAIN MED. DECLINED TO HAVE FAMILY CALLED TO NOTIFY OF FALL. VSS. DR JOHNSTON NOTIFIED. MANAGER PRODUCT MARKETING AND UCHE SENIOR QA AUTOMATION ENGINEER NOTIFIED.
--- NOTE | 2019-09-08 13:41 | NUR ---
APPOINTMENTS WITH DR. CELAYA 09/10/2019 @ 2:45, DR. MAYEN 10/20/2019 @ 3:45
--- NOTE | 2019-09-08 14:29 | NUR ---
Nutrition Follow-up: Discussed in care team meeting, pt has been vomiting today. Diet: Regular Mech Soft Ground Meat with gravy, Regular liquids PO intake: 100% x all 3 meals yesterday Last BM: 09/08/19. WT: 130# (09/02/19) Meds noted: prednisone, lasix Labs noted: Glu 143 Recommend continue current diet. RD following.
--- NOTE | 2019-09-08 15:00 | NUR ---
DC INFORMATION GIVEN TO PATIENT AND NIECE. VERBALIZES UNDERSTANDING. NIECE INFORMED OF FALL EARILER TODAY. ASSISTED TO CAR IN WC PER STAFF FOR DC HOME WITH FAMILY.
== END 2019-09-08 15:03 | disposition home health service (06) | DRG 947 ==
LOC: D.REHAB 16:07
PROVIDERS: ADMIT Emergency Medicine; ATTEND Emergency Medicine
DX: R53.81 Other malaise (principal); J69.0 Pneumonitis due to inhalation of food and vomit; J96.01 Acute respiratory failure with hypoxia; J44.1 Chronic obstructive pulmonary disease with (acute) exacerbation; I48.20 Chronic atrial fibrillation, unspecified; N17.9 Acute kidney failure, unspecified; R13.12 Dysphagia, oropharyngeal phase; R91.1 Solitary pulmonary nodule; Z79.01 Long term (current) use of anticoagulants; I10 Essential (primary) hypertension; I25.10 Atherosclerotic heart disease of native coronary artery without angina pectoris; K21.9 Gastro-esophageal reflux disease without esophagitis; R11.2 Nausea with vomiting, unspecified; R05 Cough; D72.829 Elevated white blood cell count, unspecified; R53.1 Weakness; F32.9 Major depressive disorder, single episode, unspecified; G47.33 Obstructive sleep apnea (adult) (pediatric)

== ENCOUNTER 2019-09-09 14:03 | Inpatient (IN) | payer MEDICARE, BC ==
[~2019-09-09] VITALS: Ht 162.6 cm; Wt 59.0 kg
[2019-09-09 14:45] LABS: COLOR YELLOW (YELLOW)
[2019-09-09 14:46] LABS: APPEARANCE HAZY (CLEAR); BILIRUBIN NEGATIVE (NEGATIVE); GLUCOSE NEGATIVE (NEGATIVE); KETONE NEGATIVE (NEGATIVE); NITRITE POSITIVE (NEGATIVE); PROTEIN 2+ mg/dL (NEGATIVE); UROBILINOGEN NORMAL (NORMAL)
[2019-09-09 14:53] LABS: RED CELLS - URINE 0-5 /hpf (0-5)
[2019-09-09 14:54] LABS: BACTERIA MODERATE /hpf (NEGATIVE); EPITHELIAL CELLS 0-5 /hpf (0-5); GRANULAR CAST 0-5 /lpf (NONE SEEN)
[2019-09-09 15:16] LABS: BASOPHILS 0.1 % (0-2); EOSINOPHILS 0.1 % (0-7); HEMATOCRIT 37.1 % (36.0-48.0); IMMATURE GRANULOCYTES 0.5 % (0-5); LYMPHOCYTES 1.8 % (15-50); MCH 31.3 pg (26.0-34.0); MCHC 32.3 g/dL (31.0-37.0); MCV 96.6 fL (80.0-100.0); MEAN PLATELET VOLUME 9.4 fL (7.4-10.4); MONOCYTES 2.6 % (2-11); NEUTROPHILS 94.9 % (40-80); PLATELET COUNT 294 10x3/uL (130-400); RBC 3.84 10x6/uL (4.00-5.40); RDW 16.7 % (11.5-14.5)
[2019-09-09 15:19] LABS: WBC 19.9 10x3/uL (4.8-10.8)
[2019-09-09 15:25] LABS: CALC OSMOLALITY 271 mosm/kg (275-300); CALCIUM 8.3 mg/dL (8.5-10.1); CARBON DIOXIDE 30.2 mmol/L (21.0-32.0); CHLORIDE - SERUM 96 mmol/L (98-107); CREATININE - SERUM 0.7 mg/dL (0.6-1.3); GLUCOSE 175 mg/dL (74-106); SODIUM 133 mmol/L (136-145); UREA NITROGEN 18 mg/dL (7-18); eGFR NON AFRICAN AMERICAN 83 mL/min (90-120)
[2019-09-09 15:48] LABS: ALKALINE PHOSPHATASE 64 U/L (46-116); ALT (SGPT) 24 U/L (10-68); BILIRUBIN - TOTAL 0.74 mg/dL (0.2-1.3); CKMB 1.1 U/L (0.0-3.6); CREATINE KINASE 48 UL (21-215); PROTEIN - SERUM 6.1 g/dL (6.4-8.2)
[2019-09-09 15:50] LABS: TROPONIN-I 0.068 ng/mL (0.000-0.060)
[2019-09-09 16:00] VITALS: BP 124/60
[2019-09-09 16:05] LABS: ALBUMIN 2.3 g/dL (3.4-5.0)
--- NOTE | 2019-09-09 16:52 | NUR ---
PT RESTING QUIETLY IN BED WITH EYES CLOSED AT THIS TIME. RESPIRATIONS EVEN AND UNLABORED. EMPTIED APPROX 1L OF URINE OUT OF PATIENT'S INDWELLING MILLARD CATHETER AT THIS TIME. APPEARS IN NO DISTRESS. WILL CONTINUE TO MONITOR FOR CHANGES.
[2019-09-09 17:30] VITALS: BP 118/68
[2019-09-09 18:06] LABS: APTT 43.4 SECONDS (22.8-39.4); INR 1.37 (0.85-1.17); PROTIME 16.7 SECONDS (11.6-15.0)
[2019-09-09 18:07] LABS: D-DIMER-QUANTITATIVE 2.96 ug/mLFEU (0.20-0.54)
[2019-09-09 18:44] LABS: CKMB 0.8 U/L (0.0-3.6); CREATINE KINASE 38 UL (21-215)
[2019-09-09 18:57] LABS: TROPONIN-I 0.261 ng/mL (0.000-0.060)
--- NOTE | 2019-09-09 19:13 | NUR ---
REPORT TO WANDA STALEY
--- NOTE | 2019-09-09 20:04 | NUR ---
PT GIVEN ICE WATER TO DRINK, DENIES ANY FURTHER NEEDS AT THIS TIME. CALL LIGHT WITHIN REACH, FAMILY AT BEDSIDE. WILL CONTINUE TO MONITOR.
--- NOTE | 2019-09-09 20:12 | NUR ---
PT'S ROOM IN ICU STILL DIRTY AT THIS TIME.
[2019-09-09 21:54] VITALS: BP 108/75; BMI 22.3
[2019-09-09 22:00] VITALS: BP 115/70
--- NOTE | 2019-09-09 22:00 | NUR ---
PT ASSISTED INTO ICU BED, MONITORS ON AND WORKING, VITALS STABLE, PT AWAKE AND ALERT, CALL LIGHT WITHIN REACH, WILL CONTINUE TO OBSERVE.
[2019-09-09 23:00] VITALS: BP 125/79
[2019-09-10] VITALS (13 sets, daily range): BP systolic 105–157; BP diastolic 67–96; Ht 162.6 cm; Wt 59.0 kg
--- NOTE | 2019-09-10 01:00 | NUR ---
PT LYING IN BED RESTING. MONITORS ON AND WORKING, VITALS STABLE, CALL LIGHT WITHIN REACH, WILL CONTINUE TO OBSERVE.
[2019-09-10 01:35] LABS: CKMB 0.8 U/L (0.0-3.6); CREATINE KINASE 53 UL (21-215)
[2019-09-10 01:36] LABS: TROPONIN-I 0.207 ng/mL (0.000-0.060)
--- NOTE | 2019-09-10 03:00 | NUR ---
PT RESTING, MONITORS ON AND WORKING, VITALS STABLE. SEE FLOW SHEET FOR FURTHER DETAILS. WILL CONTINUE TO OBSERVE.
--- NOTE | 2019-09-10 05:00 | NUR ---
PT SITTING UP IN BED, MONITORS ON AND WORKING, VITALS STABLE, CALL LIGHT WITHIN REACH, WILL CONTINUE TO OBSERVE.
--- NOTE | 2019-09-10 07:35 | NUR ---
THE PATIENT IS AWAKE AND SHE IS ALERT, SHE REQUESTS ICED WATER. THE NIGHT NURSE PROVIDED HER WITH A FRESH CUP. SHE IS PLEASANT AND COOPERATIVE. SHE HAS A SITTER BY HER SIDE THAT STAYS WITH HER AT HER CARE FACILITY. SHE DOES HAVE BILATERAL LOWER EXTREMITY EDEMA. CRACKLES ARE NOTED TO ALL FOUR LOBES. SHE IS COUGHING, BUT NO SPUTUM NOTED.
[2019-09-10 07:40] LABS: BASOPHILS 0.1 % (0-2); EOSINOPHILS 0 % (0-7); HEMATOCRIT 40.2 % (36.0-48.0); HEMOGLOBIN 13.3 g/dL (12-16); IMMATURE GRANULOCYTES 0.3 % (0-5); LYMPHOCYTES 2.1 % (15-50); MCH 31.2 pg (26.0-34.0); MCHC 33.1 g/dL (31.0-37.0); MEAN PLATELET VOLUME 8.9 fL (7.4-10.4); MONOCYTES 2.5 % (2-11); PLATELET COUNT 271 10x3/uL (130-400); RBC 4.26 10x6/uL (4.00-5.40); RDW 16.5 % (11.5-14.5)
[2019-09-10 07:45] LABS: MCV 94.4 fL (80.0-100.0); WBC 14.6 10x3/uL (4.8-10.8)
[2019-09-10 08:12] LABS: CALCIUM 8.2 mg/dL (8.5-10.1); CARBON DIOXIDE 35.2 mmol/L (21.0-32.0); CHLORIDE - SERUM 96 mmol/L (98-107); CKMB 0.4 U/L (0.0-3.6); CREATINE KINASE 38 UL (21-215); CREATININE - SERUM 0.7 mg/dL (0.6-1.3); MAGNESIUM - SERUM 1.7 mg/dL (1.8-2.4); SODIUM 138 mmol/L (136-145); eGFR NON AFRICAN AMERICAN 83 mL/min (90-120)
[2019-09-10 08:35] LABS: CALC OSMOLALITY 275 mosm/kg (275-300); GLUCOSE 98 mg/dL (74-106); UREA NITROGEN 13 mg/dL (7-18)
[2019-09-10 08:36] LABS: POTASSIUM - SERUM 2.6 mmol/L (3.5-5.1); TROPONIN-I 0.215 ng/mL (0.000-0.060)
--- NOTE | 2019-09-10 08:40 | NUR ---
Critical potassium called from lab, will follow electrolyte protocol.
--- NOTE | 2019-09-10 08:49 | NUR ---
Spoke to the patient and let her know her potassium is low and will provide her potassium now, in two hours and four hours for a total of three doses then order a redraw of lab.
--- NOTE | 2019-09-10 09:41 | NUR ---
Offering the patient water, and assisting to turn her off of her bottom. Provided and incentive spirometer and provide reminders for her to use it.
--- NOTE | 2019-09-10 09:45 | NUR ---
Emptied the patient's paula bag with 1700 cc clear yellow urine.
--- NOTE | 2019-09-10 10:01 | NUR ---
Physical therapy is here, assisted her up out of the bed so that she can sit up in the chair for awhile.
--- NOTE | 2019-09-10 11:01 | NUR ---
Dr. Finn rounded on the patient, reminded her to use her incentive spirometer. Potassium 20 mEq po provided. Talavera draining clear yellow urine.
--- NOTE | 2019-09-10 14:39 | NUR ---
RECEIVED PATIENT FROM ICU. ALERT AND ORIENTED. UP WITH ASSIST. IV TO RIGHT AC, SL. SITE PATENT WITHOUT REDNESS OR SWELLING. CRACKLES ASCULTATED ALL LOBES. PRODUCTIVE COUGH, YELLOW SPUTUM. ON 5L O2, NC. DENIES ANY NEEDS AT THIS TIME. CALL LIGHT IN REACH. WILL CONTINUE TO MONITOR.
[2019-09-10 15:17] LABS: ALBUMIN 2.1 g/dL (3.4-5.0); ALKALINE PHOSPHATASE 57 U/L (46-116); ALT (SGPT) 25 U/L (10-68); BILIRUBIN - TOTAL 0.84 mg/dL (0.2-1.3); CARBON DIOXIDE 35.6 mmol/L (21.0-32.0); CHLORIDE - SERUM 93 mmol/L (98-107); CREATININE - SERUM 0.7 mg/dL (0.6-1.3); GLUCOSE 115 mg/dL (74-106); PROTEIN - SERUM 5.8 g/dL (6.4-8.2); SODIUM 134 mmol/L (136-145); eGFR NON AFRICAN AMERICAN 83 mL/min (90-120)
[2019-09-10 15:20] LABS: CALC OSMOLALITY 270 mosm/kg (275-300); POTASSIUM - SERUM 3.3 mmol/L (3.5-5.1); UREA NITROGEN 17 mg/dL (7-18)
--- NOTE | 2019-09-10 16:21 | MORECARE ---
CASE MANAGEMENT DISCHARGE SUMMARY PATIENT: LAZARO MCKENZIE UNIT: [id number] ADM DATE: 09/09/19 AGE: 89 : 30 SEX: F ROOM/BED: D.[facility] AUTHOR: HA BRANHAM PHYSICIAN: REFERRING PHYSICIAN: EDWIGE RANGEL MD DATE OF SERVICE: 09/10/19 Discharge Plan Patient Name: LAZARO MCKENZIE [facility] [facility] 1930 Planned Disposition: Assisted Facility Anticipated Discharge Date: 09/13/19 Discharge Date: Expected LOS: 4 Initial Reviewer: [email or web address] Initial Review Date: 09/09/2019 Generated: 09/10/19 5:21 pm External Providers External Provider: [facility] *(provides inpt [facility] Next Contact Date: Service Request Date: Service Type: Resolution: Reviewer: Comments: Patient Name: LAZARO MCKENZIE Page [phone] at 1621 All edits/amendments must be made on the electronic document DICTATION DATE: 09/10/19 162 SOFTBALL CORE MOLDER: JARROD 09/10/19 162 RPT#: [id number] DC DATE: STATUS: ADM IN [facility] [address] [place] [address] END OF REPORT
--- NOTE | 2019-09-10 16:30 | MORECARE ---
CASE MANAGEMENT DISCHARGE SUMMARY PATIENT: LAZARO MCKENZIE UNIT: [id number] ADM DATE: 09/09/19 AGE: 89 : 30 SEX: F ROOM/BED: D.2233 AUTHOR: HA BRANHAM PHYSICIAN: REFERRING PHYSICIAN: EDWIGE RANGEL MD DATE OF SERVICE: 09/10/19 Discharge Plan Patient Name: LAZARO MCKENZIE Facility: [facility]:[place] : 1930 Planned Disposition: Snf Facility Anticipated Discharge Date: 09/13/19 Discharge Date: Expected LOS: 4 Initial Reviewer: [email or web address] Initial Review Date: 09/09/2019 Generated: 09/10/19 5:30 pm DCPIA - Discharge Planning Initial Assessment Updated by [email or web address]: Colette Herron on 09/10/19 4:23 pm * Is the patient Alert and Oriented? Yes * How many steps to enter\exit or inside your home? None * PCP Dr. Dhillon * Pharmacy [facility] [address] - short term meds. * Preadmission Environment Assisted Living * Facility Name [facility] * ADLs Partial Dependent * Partial ADLs (Assistance needed) Medication Management * Equipment Nebulizer Rolling Walker * Other Equipment 3 wheel walker * List name and contact numbers for known caregivers / representatives who currently or will assist patient after discharge: Lindsey Ng [facility] - [phone] * Verbal permission to speak to the caregivers and representatives has been obtained from the patient. Yes * Additional services required to return to the preadmission environment? No * Can the patient safely return to the preadmission environment? Yes * Has this patient been hospitalized within the prior 30 days at any hospital? Yes Last DP export: 09/10/19 3:21 p Patient Name: LAZARO MCKENZIE Page [phone] at 1630 All edits/amendments must be made on the electronic document DICTATION DATE: 09/10/19 1630 EDITOR AT LARGE: JARROD 09/10/19 1630 RPT#: [id number] DC DATE: STATUS: ADM IN [facility] [address] [place] [address] END OF REPORT
--- NOTE | 2019-09-10 16:39 | MORECARE ---
CASE MANAGEMENT DISCHARGE SUMMARY PATIENT: LAZARO MCKENZIE UNIT: [id number] ADM DATE: 09/09/19 AGE: 89 : 30 SEX: F ROOM/BED: D.2233 AUTHOR: CARROL,DOC PHYSICIAN: REFERRING PHYSICIAN: EDWIGE RANGEL MD DATE OF SERVICE: 09/10/19 Discharge Plan Patient Name: LAZARO MCKENZIE Facility: [facility]:[place] : 1930 Planned Disposition: Fdc Facility Anticipated Discharge Date: 09/13/19 Discharge Date: Expected LOS: 4 Initial Reviewer: [email or web address] Initial Review Date: 09/09/2019 Generated: 09/10/19 5:39 pm DCP- Discharge Planning Updated by [email or web address]: Colette Herron on 09/10/19 3:[address] DC PLAN: [facility] for rehab if needed or back to [facility]. DC NEEDS: Rehab CM met with patient to complete initial dc planning assessment. CM educated patient on the CM role and verbal consent given by patient to complete assessment. CM verified patient's address, phone number, and emergency contact phone numbers. Patient lives at [facility]. Patient recently hospitalized and went to [facility] at time of dc. She feels she may need additional rehab at dc. KAYLIE form signed by patient for [facility] if needed. Signed form placed in chart and signed form given to patient. Patient denied further known discharge needs at this time. CM will continue to follow and will assist as needed with dc plans/needs. Colette Herron RN, [facility] DCPIA - Discharge Planning Initial Assessment Updated by [email or web address]: Colette Herron on 09/10/19 4:23 pm * Is the patient Alert and Oriented? Yes * How many steps to enter\exit or inside your home? None * PCP Dr. Dhillon * Pharmacy [facility] [address] - short term meds. * Preadmission Environment Assisted Living * Facility Name [facility] * ADLs Partial Dependent * Partial ADLs (Assistance needed) Medication Management * Equipment Nebulizer Rolling Walker * Other Equipment 3 wheel walker * List name and contact numbers for known caregivers / representatives who currently or will assist patient after discharge: Lindsey Ng [phone] * Verbal permission to speak to the caregivers and representatives has been obtained from the patient. Yes * Additional services required to return to the preadmission environment? No * Can the patient safely return to the preadmission environment? Yes * Has this patient been hospitalized within the prior 30 days at any hospital? Yes Last DP export: 09/10/19 3:30 p Patient Name: LAZARO MCKENZIE Page [phone] at 1639 All edits/amendments must be made on the electronic document DICTATION DATE: 09/10/19 163 PREPARER: JARROD 09/10/19 163 RPT#: [id number] DC DATE: STATUS: ADM IN [facility] [address] [place] [address] END OF REPORT
--- NOTE | 2019-09-10 17:18 | NUR ---
The patient is awake in her room. She is coughing with some yellow sputum noted. Her POA is sitting by her side. The patient is offered her meal, but she refuses. She is drinking water. Emcourage her to cough, deep breathe and use her incentive spirometer.
--- NOTE | 2019-09-10 18:33 | NUR ---
ALERT AND ORIENTED, VISITING WITH [facility]. FAMILY AT BEDSIDE. DENIES ANY NEEDS AT THIS TIME. CALL LIGHT IN REACH. WILL CONTINUE TO MONITOR.
--- NOTE | 2019-09-10 19:44 | MORECARE ---
CASE MANAGEMENT DISCHARGE SUMMARY PATIENT: LAZARO MCKENZIE UNIT: [id number] ADM DATE: 09/09/19 AGE: 89 : 30 SEX: F ROOM/BED: D.2233 AUTHOR: CARROL,DOC PHYSICIAN: REFERRING PHYSICIAN: EDWIGE RANGEL MD DATE OF SERVICE: 09/10/19 Discharge Plan Patient Name: LAZARO MCKENZIE Facility: [facility]:[place] : 1930 Planned Disposition: [facility] Facility Anticipated Discharge Date: 09/13/19 Discharge Date: Expected LOS: 4 Initial Reviewer: [email or web address] Initial Review Date: 09/09/2019 Generated: 09/10/19 8:43 pm Comments DCP- Discharge Planning Updated by [email or web address]: Colleen Davis on 09/10/19 6:[address] CM spoke with patient and her niece Lindsey they are requesting for patient to go home on hospice. KAYLIE signed for [facility]. CM called and faxed over records. Patient being moved to Med Surg CM advised Hospice that patient of room number 2233 and they stated they have set up a time with niragini to meet in patient's room this evening. Lindsey had stated that patient lives at [facility] and plans for patient to return there on Hospice. She stated she would have 24 hr child care director for patient. CM contacted [facility] and spoke with Ghazala and she stated the patient can come back on hospice of her choice as long as she has 24 hr care. CM will continue to follow and assist as needed with discharge planning / needs DCP- Discharge Planning Updated by [email or web address]: Colette Herron on 09/10/19 3:[address] DC PLAN: [facility] for rehab if needed or back to [facility]. DC NEEDS: Rehab CM met with patient to complete initial dc planning assessment. CM educated patient on the CM role and verbal consent given by patient to complete assessment. CM verified patient's address, phone number, and emergency contact phone numbers. Patient lives at [facility]. Patient recently hospitalized and went to [facility]hab at time of dc. She feels she may need additional rehab at dc. KAYLIE form signed by patient for [facility] if needed. Signed form placed in chart and signed form given to patient. Patient denied further known discharge needs at this time. CM will continue to follow and will assist as needed with dc plans/needs. Colette Herron RN, [facility] DCPIA - Discharge Planning Initial Assessment Updated by [email or web address]: Colette Herron on 09/10/19 4:23 pm * Is the patient Alert and Oriented? Yes * How many steps to enter\exit or inside your home? None * PCP Dr. Dhillon * Pharmacy [facility] [address] - short term meds. * Preadmission Environment Assisted Living * Facility Name [facility] * ADLs Partial Dependent * Partial ADLs (Assistance needed) Medication Management * Equipment Nebulizer Rolling Walker * Other Equipment 3 wheel walker * List name and contact numbers for known caregivers / representatives who currently or will assist patient after discharge: Lindsey Ng [facility] - [phone] * Verbal permission to speak to the caregivers and representatives has been obtained from the patient. Yes * Additional services required to return to the preadmission environment? No * Can the patient safely return to the preadmission environment? Yes * Has this patient been hospitalized within the prior 30 days at any hospital? Yes Coverage Notice Reviewer: [id number] - Colleen Davis Notice Issued Date-Time: 09/10/2019 14:30 Notice Type: Patient Choice Letter Notice Delivered To: Patient Relationship to Patient: [employer] Name: Delivery Method: HAND - Hand Delivered [place] Days: Prior Verbal Notification: Recipient Understood Notice: Yes Recipient Signature: Yes Med Rec Note Co-signed by Attending: Coverage Notice Comment: [facility] Last DP export: 09/10/19 3:39 p Patient Name: LAZARO CMKENZIE Page [phone] at 1944 All edits/amendments must be made on the electronic document DICTATION DATE: 09/10/191942 FIRE ALARM INSTALLER: JARROD 09/10/191942 RPT#: [id number] DC DATE: STATUS: ADM IN [facility] [address] [place] [address] END OF REPORT
[2019-09-11] VITALS: BP 117/71
[2019-09-11 04:00] VITALS: BP 120/73
[2019-09-11 05:36] LABS: BASOPHILS 0.2 % (0-2); EOSINOPHILS 0 % (0-7); HEMOGLOBIN 12.9 g/dL (12-16); IMMATURE GRANULOCYTES 0.5 % (0-5); LYMPHOCYTES 5.1 % (15-50); MCH 31.2 pg (26.0-34.0); MCHC 33.1 g/dL (31.0-37.0); MCV 94.2 fL (80.0-100.0); MEAN PLATELET VOLUME 9.5 fL (7.4-10.4); MONOCYTES 3.5 % (2-11); NEUTROPHILS 90.7 % (40-80); PLATELET COUNT 258 10x3/uL (130-400); RBC 4.14 10x6/uL (4.00-5.40); RDW 16.3 % (11.5-14.5); WBC 12.9 10x3/uL (4.8-10.8)
[2019-09-11 07:00] LABS: CALC OSMOLALITY 268 mosm/kg (275-300); CALCIUM 7.9 mg/dL (8.5-10.1); CARBON DIOXIDE 34.4 mmol/L (21.0-32.0); CHLORIDE - SERUM 94 mmol/L (98-107); CREATININE - SERUM 0.6 mg/dL (0.6-1.3); GLUCOSE 97 mg/dL (74-106); MAGNESIUM - SERUM 1.8 mg/dL (1.8-2.4); SODIUM 134 mmol/L (136-145); UREA NITROGEN 16 mg/dL (7-18); VANCOMYCIN - RANDOM 3.2 ug/mL (10.0-20.0); eGFR NON AFRICAN AMERICAN > 90 mL/min (90-120)
[2019-09-11 07:02] LABS: POTASSIUM - SERUM 2.8 mmol/L (3.5-5.1)
--- NOTE | 2019-09-11 08:05 | NUR ---
PT RESTING IN BED WITH EYES OPEN, ALERT AND ORIENTED. CURRENTLY RCVING 5L VIA NC, NO IV PRESENT. NO S/S OF DISTRESS NOTED AT THIS TIME, DENIES NEEDS, WILL CONTINUE TO MONITOR.
[2019-09-11 10:05] VITALS: BP 140/93
--- NOTE | 2019-09-11 11:09 | MORECARE ---
CASE MANAGEMENT DISCHARGE SUMMARY PATIENT: LAZARO MCKENZIE UNIT: [id number] ADM DATE: 09/09/19 AGE: 89 : 30 SEX: F ROOM/BED: D.2233 AUTHOR: CARROL,DOC PHYSICIAN: REFERRING PHYSICIAN: EDWIGE RANGEL MD DATE OF SERVICE: 09/11/19 Discharge Plan Patient Name: LAZARO MCKENZIE Facility: [facility]:[place] : 1930 Planned Disposition: Penitentiary Facility Anticipated Discharge Date: 09/13/19 Discharge Date: Expected LOS: 4 Initial Reviewer: [id number] Initial Review Date: 09/09/2019 Generated: 09/11/19 12:09 pm Comments DCP- Discharge Planning Updated by [id number]: Kerline Zamora on 09/11/19 10:[address] CM spoke with patient's niece, Lindsey Ng to determine if hospice had met with patient last evening, she verifies that all legal paperwork has been completed and the patient is expecting to be discharged back to [facility] today. CM contacted Mikayla with [facility] to verify that required medical equipment is in place at [facility]. Niece request ambulance transportation upon discharge. Notified patient's nurse of same. DCP- Discharge Planning Updated by [id number]: Colleen Davis on 09/10/19 6:[address] CM spoke with patient and her niece Lindsey they are requesting for patient to go home on hospice. KAYLIE signed for [facility]. CM called and faxed over records. Patient being moved to [facility] CM advised Hospice that patient of room number 2233 and they stated they have set up a time with niece to meet in patient's room this evening. iLndsey had stated that patient lives at [facility] and plans for patient to return there on Hospice. She stated she would have 24 hr care advocate for patient. CM contacted [facility] and spoke with Ghazala and she stated the patient can come back on hospice of her choice as long as she has 24 hr care. CM will continue to follow and assist as needed with discharge planning / needs DCP- Discharge Planning Updated by [id number]: Colette Herron on 09/10/19 3:[address] DC PLAN: [place] for rehab if needed or back to [facility]. DC NEEDS: Rehab CM met with patient to complete initial dc planning assessment. CM educated patient on the CM role and verbal consent given by patient to complete assessment. CM verified patient's address, phone number, and emergency contact phone numbers. Patient lives at [facility]. Patient recently hospitalized and went to [facility] at time of dc. She feels she may need additional rehab at dc. KAYLIE form signed by patient for [facility] if needed. Signed form placed in chart and signed form given to patient. Patient denied further known discharge needs at this time. CM will continue to follow and will assist as needed with dc plans/needs. Colette Herron RN, [facility] DCPIA - Discharge Planning Initial Assessment Updated by [id number]: Colette Herron on 09/10/19 4:23 pm * Is the patient Alert and Oriented? Yes * How many steps to enter\exit or inside your home? None * PCP Dr. Dhillon * Pharmacy [facility] [address] - short term meds. * Preadmission Environment Assisted Living * Facility Name [facility] * ADLs Partial Dependent * Partial ADLs (Assistance needed) Medication Management * Equipment Nebulizer Rolling Walker * Other Equipment 3 wheel walker * List name and contact numbers for known caregivers / representatives who currently or will assist patient after discharge: [facility] - [phone] * Verbal permission to speak to the caregivers and representatives has been obtained from the patient. Yes * Additional services required to return to the preadmission environment? No * Can the patient safely return to the preadmission environment? Yes * Has this patient been hospitalized within the prior 30 days at any hospital? Yes Coverage Notice Reviewer: [id number] - Colleen Davis Notice Issued Date-Time: 09/10/2019 14:30 Notice Type: Patient Choice Letter Notice Delivered To: Patient Relationship to Patient: Self Chinese Herbalist Name: Delivery Method: HAND - Hand Delivered [place] Days: Prior Verbal Notification: Recipient Understood Notice: Yes Recipient Signature: Yes Med Rec Note Co-signed by Attending: Coverage Notice Comment: [facility] Last DP export: 09/10/19 6:44 p Patient Name: LAZARO MCKENZIE Page [id number] at 1109 All edits/amendments must be made on the electronic document DICTATION DATE: 09/11/191108 PILLAR MAN: JARROD 09/11/191108 RPT#: [id number] DC DATE: STATUS: ADM IN [facility] [address] [place] [address] END OF REPORT
[2019-09-11 12:39] VITALS: BP 138/79
--- NOTE | 2019-09-13 09:09 | MORECARE ---
CASE MANAGEMENT DISCHARGE SUMMARY PATIENT: LAZARO MCKENZIE UNIT: [id number] ADM DATE: 09/09/19 AGE: 89 : 30 SEX: F ROOM/BED: D.2233 AUTHOR: CARROL,DOC PHYSICIAN: REFERRING PHYSICIAN: EDWIGE RANGEL MD DATE OF SERVICE: 09/13/19 Discharge Plan Patient Name: LAZARO MCKENZIE Facility: [facility]:[place] : 1930 Planned Disposition: Alf Facility Anticipated Discharge Date: 09/13/19 Discharge Date: 09/11/2019 Expected LOS: 4 Initial Reviewer: [email or web address] Initial Review Date: 09/09/2019 Generated: 09/13/19 10:09 am Comments DCP- Discharge Planning Updated by [id number]: Kerline Zamora on 09/11/19 10:[address] CM spoke with patient's niece, Lindsey Ng to determine if hospice had met with patient last evening, she verifies that all legal paperwork has been completed and the patient is expecting to be discharged back to [facility] today. CM contacted Mikayla with [facility] to verify that required medical equipment is in place at [facility]. Niece request ambulance transportation upon discharge. Notified patient's nurse of same. DCP- Discharge Planning Updated by [id number]: Colleen Davis on 09/10/19 6:[address] CM spoke with patient and her niece Lindsey they are requesting for patient to go home on hospice. KAYLIE signed for [facility]. CM called and faxed over records. Patient being moved to [facility] CM advised Hospice that patient of room number 2233 and they stated they have set up a time with niece to meet in patient's room this evening. Lindsey had stated that patient lives at [facility] and plans for patient to return there on Hospice. She stated she would have 24 hr dog day care attendant for patient. CM contacted [facility] and spoke with Ghazala and she stated the patient can come back on hospice of her choice as long as she has 24 hr care. CM will continue to follow and assist as needed with discharge planning / needs DCP- Discharge Planning Updated by [email or web address]: Colette Herron on 09/10/19 3:[address] DC PLAN: [place] for rehab if needed or back to [facility]. DC NEEDS: Rehab CM met with patient to complete initial dc planning assessment. CM educated patient on the CM role and verbal consent given by patient to complete assessment. CM verified patient's address, phone number, and emergency contact phone numbers. Patient lives at [facility]. Patient recently hospitalized and went to [facility] at time of dc. She feels she may need additional rehab at dc. KAYLIE form signed by patient for [facility] if needed. Signed form placed in chart and signed form given to patient. Patient denied further known discharge needs at this time. CM will continue to follow and will assist as needed with dc plans/needs. Colette Herron RN, [facility] DCPIA - Discharge Planning Initial Assessment Updated by [email or web address]: Colette Herron on 09/10/19 4:23 pm * Is the patient Alert and Oriented? Yes * How many steps to enter\exit or inside your home? None * PCP Dr. Dhillon * Pharmacy [facility] [address] - short term meds. * Preadmission Environment Assisted Living * Facility Name [facility] * ADLs Partial Dependent * Partial ADLs (Assistance needed) Medication Management * Equipment Nebulizer Rolling Walker * Other Equipment 3 wheel walker * List name and contact numbers for known caregivers / representatives who currently or will assist patient after discharge: Lindsey [facility] - [phone] * Verbal permission to speak to the caregivers and representatives has been obtained from the patient. Yes * Additional services required to return to the preadmission environment? No * Can the patient safely return to the preadmission environment? Yes * Has this patient been hospitalized within the prior 30 days at any hospital? Yes Coverage Notice Reviewer: [id number] - Colleen Davis Notice Issued Date-Time: 09/10/2019 14:30 Notice Type: Patient Choice Letter Notice Delivered To: Patient Relationship to Patient: Self Resin Painter Name: Delivery Method: HAND - Hand Delivered [place] Days: Prior Verbal Notification: Recipient Understood Notice: Yes Recipient Signature: Yes Med Rec Note Co-signed by Attending: Coverage Notice Comment: [facility] Last DP export: 09/11/19 10:09 a Patient Name: LAZARO MCKENZIE Page [id number] at 0909 All edits/amendments must be made on the electronic document DICTATION DATE: 09/13/19908 UNDERWRITING CLERKS SUPERVISOR: JARROD 09/13/19908 RPT#: [id number] DC DATE:09/11/19 STATUS: DIS IN [facility] [address] [place] [address] END OF REPORT
== END 2019-09-11 14:30 | disposition home health service (06) | DRG 871 ==
LOC: D.ER 14:03 → D.ICU 17:52 → D.MS 09-10 14:36
PROVIDERS: Emergency Medicine; ADMIT Family Medicine; ATTEND Family Medicine
DX: A41.9 Sepsis, unspecified organism (principal); J69.0 Pneumonitis due to inhalation of food and vomit; J96.01 Acute respiratory failure with hypoxia; J44.1 Chronic obstructive pulmonary disease with (acute) exacerbation; J44.0 Chronic obstructive pulmonary disease with (acute) lower respiratory infection; N39.0 Urinary tract infection, site not specified; E87.1 Hypo-osmolality and hyponatremia; I48.20 Chronic atrial fibrillation, unspecified; G72.81 Critical illness myopathy; R91.1 Solitary pulmonary nodule; I25.10 Atherosclerotic heart disease of native coronary artery without angina pectoris; K21.9 Gastro-esophageal reflux disease without esophagitis; Z79.01 Long term (current) use of anticoagulants; Z66 Do not resuscitate; B96.20 Unspecified Escherichia coli [E. coli] as the cause of diseases classified elsewhere; I11.0 Hypertensive heart disease with heart failure; I50.9 Heart failure, unspecified